=== PATIENT | female | born 1965 | race Caucasian/White ===

== ENCOUNTER 2021-01-14 10:28 | Emergency (ER) | payer MEDICAID, SELFPAY ==
[2021-01-14 10:37] VITALS: BP 163/86; PULSE 80; RESP 15; TEMP 36.4; O2SAT 98; BMI 20.1
--- NOTE | 2021-01-14 10:37 | ECG_ITS ---
[facility] Test Date: 2021-01-14 Pat Name: SAGE RODRIGUEZ Department: Room: Gender: Female Community Liaison Officer: : 1965 Requested By: Karla Ballard Order Number: [id number] Reading MD: BJORN SOUSA Measurements Intervals [place] Rate: 74 P: 58 MT: 155 QRS: 30 QRSD: 87 T: 68 QT: 366 QTc: 408 Interpretive Statements SINUS RHYTHM No previous ECG available for comparison Electronically Signed On 01-14-2021 21:16:43 CDT by BJORN SOUSA [id number]
--- NOTE | 2021-01-14 10:53 | ED_ITS ---
HPI - Abdominal Pain General: Chief Complaint: Abdominal Pain Stated Complaint: AB PAIN Time Seen by Provider: 01/14/21 10:51 Source: patient Mode of arrival: ambulatory Limitations: no limitations History of Present Illness: HPI narrative: 55-year-old female patient presents to the emergency department with 1 year onset of right upper quadrant pain waxes and wanes. She reports sustained a fall approximately 2 weeks ago, states noted bruising to her lower abdomen with a hard night. She reports the hard knot has improved. She denies difficulty with ambulation, denies chest pain shortness of breath, nausea vomiting diarrhea. She reports worsening right upper quadrant belly pain that started last night. She reports occurred after eating a bowl of cereal and has not let up. She denies history of abdominal surgeries. She reports last ate last night, states scared to eat anything due to the pain. She reports several weeks ago, tripped over the dog and fell on a tree root, tree root hit the right lower quadrant of her abdomen. She states hard not felt over the right lower quadrant is much smaller than it was several weeks ago. She denies hematuria or flank pain. MD elicited complaint: abdominal pain Onset (ago): month(s) Pain Consistency: constant Location: RUQ Severity: moderate Quality: stabbing and aching Radiation: none Migration to: no migration Exacerbating factors: eating Relieving factors: nothing Associated Symptoms: Reports bloating and chills; Denies belching, change in stool character, constipation, GI cramping, diarrhea, excessive flatus, fever(s), hematochezia, hematuria, hematemesis, fecal incontinence, melena, nausea, poor appetite and vomiting Review of Systems General: Reports: 10 or more systems reviewed and unremarkable except in HPI and below Const: Reports: chills; Denies: fever(s) Eyes: Denies: blurry vision or eye redness ENMT: Denies: throat pain, dental pain or disequilibrium Card: Denies: chest pain, palpitations, irregular heart rhythm, swelling of feet/ankles, dyspnea on exertion or orthopnea Resp: Denies: dyspnea, productive cough, non-productive cough, wheezing, hemoptysis or chest congestion GI: Reports: abdominal pain and bloating; Denies: nausea, vomiting, hematemesis, dysphagia, diarrhea, constipation, GI cramping, belching, excessive flatus, fecal incontinence, change in stool character, hematochezia or melena : Denies: flank pain, difficulty voiding, urinary frequency, urinary urgency or hematuria Musc: Denies: neck pain, back pain or joint pain Skin/Breast: Denies: rash or pruritus Neuro: Denies: headache(s), weakness in extremities or behavioral changes Psych: Reports: change in appetite; Denies: anxiety, depression or mood swings Isaiah/Lymph: Denies: easy bruising PFSH ED PFSH: Medical History Kidney stone Pneumonia Post hysterectomy menopause Sepsis Surgical History Tubal ligation status Physical Exam Const: COMMON NORMALS: no acute distress, patient oriented x3, healthy appearing, alert and well nourished GENERAL APPEARANCE: cooperative, well kempt, well developed, anxious and well hydrated NUTRITIONAL APPEARANCE: thin ORIENTATION/CONSCIOUSNESS: Yes awake, Yes oriented to person, Yes oriented to place and Yes oriented to time HENMT: COMMON NORMALS: normocephalic, atraumatic, Normal external nose present and moist oral mucous membranes HEAD & SCALP: normal to inspection, normocephalic and atraumatic FACE & SINUS: normal facial exam, sinuses nontender and face symmetric NOSE: Normal external nose present and No nasal polyps present MOUTH: Normal oral and palatal mucosa present, lip normal and tongue normal THROAT: posterior oropharynx normal, tonsils normal and uvula midline Eye: COMMON NORMALS: Equal, round and reactive pupils present and EOMs intact bilaterally GENERAL EYE: appearance normal, both eyes and all related structures PUPIL: Yes Equal, round and reactive pupils present Neck/C-Spine: COMMON NORMALS: full ROM and no lymphadenopathy GENERAL: Yes normal visual inspection and Yes trachea midline CERVICAL SPINE: Yes cervical ROM normal Lymph: LYMPHATIC: no lymphadenopathy noted Chest: COMMONS NORMALS: normal inspection of the chest and normal palpation of entire chest wall CHEST: No localized rib tenderness with anteroposterior compression and No Ecchymosis present Resp: COMMON NORMALS: normal respiratory effort, No retractions, No use of accessory muscles and clear to auscultation bilaterally EFFORT & INSPECTION: Yes able to speak in complete sentences, No labored and No audible wheezes AUSCULTATION: clear to auscultation bilaterally Cardio: COMMON NORMALS: regular rate, regular rhythm, S1 normal heart sound present, S2 normal heart sound present and Peripheral pulses 2+ throughout RATE: regular rate RHYTHM: regular rhythm HEART SOUNDS: S1 normal heart sound present and S2 normal heart sound present PERIPHERAL PULSES: Peripheral pulses 2+ throughout GI: COMMON NORMALS: Soft to palpation INSPECTION: Yes normal to inspection, Yes abdominal wall ecchymosis (RLQ), Yes Abdominal wall edema (RLQ), Yes abdominal distension, No central obesity and Yes other (Positive Cosby's) AUSCULTATION: Yes normoactive bowel sounds PALPATION: Yes Soft to palpation : COMMON NORMALS: Yes no CVA tenderness BLADDER/KIDNEY EXAM: Yes no CVA tenderness Back/Pelvis: COMMON NORMALS: no CVA tenderness, thoracic and lumbar spine normal to inspection, no thoracic nor lumbar tenderness, thoraco-lumbar ROM normal and straight leg raise negative bilaterally Extremity: COMMON NORMALS: normal to inspection, full ROM, capillary refill normal, no clubbing, cyanosis or edema and no pedal edema GENERAL: Yes normal exam except as noted Neuro: COMMON NORMALS: patient oriented x3 and no focal motor deficits SENSORIUM/ORIENTATION: Yes alert, Yes oriented to person, Yes oriented to place and Yes oriented to time SPEECH: speech normal GAIT: Yes Normal gait present MOTOR EXAM: 5/5 motor strength present throughout Psych: COMMON NORMALS: mental status grossly normal, Normal thought process present and cooperative APPEARANCE: Yes well kempt ACTIVITY/MOTOR BEHAVIOR: Yes appropriate eye contact THOUGHT PROCESS: Normal thought process present Skin: COMMON NORMALS: no rashes or lesions noted, no wounds, turgor normal, no petechiae and no mottling GENERAL SKIN EXAM: no rashes or lesions noted, elasticity normal and turgor normal Course Vital Signs: Vital signs: Vital Signs Temperature 97.6 F 01/14/21 10:37 Pulse Rate 78 01/14/21 13:38 Respiratory Rate 15 01/14/21 13:38 Blood Pressure 118/80 01/14/21 13:38 Pulse Oximetry 100 01/14/21 13:38 MDM - Abdominal Pain MDM Narrative: Medical decision making narrative: 55-year-old female patient presents to the emergency department with right upper quadrant pain. She reports pain worsened after eating last night. Positive Cosby's upon exam, suspicious for gallbladder etiology. Ultrasound gallbladder revealed normal gallbladder and bile ducts with mild fatty liver. CT scan completed secondary to right lower quadrant swelling with ecchymosis, she sustained a fall approximately 2 weeks ago as she continues to have abdominal pain. CT scan did reveal hematoma of the right lower quadrant, 5 cm. Lactic acid was 1.5, chest x-ray did reveal 13 mm bolus of the right lower lobe. Patient is a smoker, referred her to pulmonology, director social welfare referral placed to help with appointment. Patient was advised to follow-up with her primary care provider this week in regards to fatty liver findings. Morphine was provided here in the ED for pain which resolved her pain. She also received Toradol. She was placed on albuterol inhaler with smoking cessation instructions in regards to findings on her chest x-ray/abdominal CT. Advised she could have the beginning of COPD, this could be causing her pain. She reports feeling better and wants to go home. Agrees to follow-up with pulmonology and primary care. Differential Diagnosis: Differential diagnosis abdominal pain: Likely abdominal pain and acute appendicitis Lab Data: Labs: Lab Results 01/14/21 01/14/21 01/14/21 Range/Units 10:30 10:30 10:30 WBC 5.4 (4.0-10.0) 10^3/ uL RBC 4.48 (4.1-5.3) 10^6/u L Hgb 13.8 (11.5-15.3) g/dL Hct 41.2 (37.0-47.0) % MCV 92.0 (81-99) fL MCH 30.8 (28.0-34.0) pg MCHC 33.5 (30.0-36.0) g/dL RDW 12.8 (12.1-15.1) % Plt Count 374 (130-400) 10^3/c mm MPV 9.1 (7.4-10.4) fL Neut % (Auto) 41.6 % Lymph % (Auto) 48.4 % Harrison % (Auto) 8.5 % Eos % (Auto) 0.9 % Baso % (Auto) 0.4 % Neut # (Auto) 2.24 (1.8-7.7) 10^3/u L Lymph # (Auto) 2.6 (0.8-4.8) 10^3/u L Harrison # (Auto) 0.5 (0.2-0.9) 10^3/u L Eos # (Auto) 0.1 (0.0-0.8) 10^3/u L Baso # (Auto) 0.0 (0.0-0.1) 10^3/u L Nucleated RBC % (a uto) 0 % Nucleated RBCs # 0.0 /100WBC Sodium 137 (136-145) mmol/L Potassium 4.5 (3.5-5.1) mmol/L Chloride 103 (98-107) mmol/L Carbon Dioxide 26 (22-29) mmol/L Anion Gap 12.5 (5-19) BUN 13 (6-20) mg/dL Creatinine 0.5 (0.5-0.9) mg/dL GFR Calculation 129.1 (90-130) mL/min Glucose 80 (65-115) mg/dL Calculated Osmolal ity 283 L (285-295) mOsm/k g Lactate 1.5 (0.5-2.2) mmol/L Calcium 8.7 (8.5-10.5) mg/dL Total Bilirubin 0.3 (0.15-1.2) mg/dL AST 49 H (0-32) U/L ALT 55 H (0-33) U/L Alkaline Phosphata se 114 H (35-105) IU/L Total Protein 7.1 (6.6-8.7) g/dL Albumin 4.0 (3.5-5.2) g/dL Globulin 3.1 (1.3-4.6) g/dL Lipase 44 (13-60) U/L Urine Color (Yellow) Urine Appearance (CLEAR) Urine pH (5-7) Ur Specific Gravit y (1.005-1.030) Urine Protein (Negative) Urine Glucose (UA) (Normal) Urine Ketones (Negative) Urine Blood (Negative) Urine Nitrate (Negative) Urine Bilirubin (Negative) Urine Urobilinogen (Negative) mg/dL Ur Leukocyte Hanane ase (Negative) 01/14/21 Range/Units 10:30 WBC (4.0-10.0) 10^3/ uL RBC (4.1-5.3) 10^6/u L Hgb (11.5-15.3) g/dL Hct (37.0-47.0) % MCV (81-99) fL MCH (28.0-34.0) pg MCHC (30.0-36.0) g/dL RDW (12.1-15.1) % Plt Count (130-400) 10^3/c mm MPV (7.4-10.4) fL Neut % (Auto) % Lymph % (Auto) % Harrison % (Auto) % Eos % (Auto) % Baso % (Auto) % Neut # (Auto) (1.8-7.7) 10^3/u L Lymph # (Auto) (0.8-4.8) 10^3/u L Harrison # (Auto) (0.2-0.9) 10^3/u L Eos # (Auto) (0.0-0.8) 10^3/u L Baso # (Auto) (0.0-0.1) 10^3/u L Nucleated RBC % (a uto) % Nucleated RBCs # /100WBC Sodium (136-145) mmol/L Potassium (3.5-5.1) mmol/L Chloride (98-107) mmol/L Carbon Dioxide (22-29) mmol/L Anion Gap (5-19) BUN (6-20) mg/dL Creatinine (0.5-0.9) mg/dL GFR Calculation (90-130) mL/min Glucose (65-115) mg/dL Calculated Osmolal ity (285-295) mOsm/k g Lactate (0.5-2.2) mmol/L Calcium (8.5-10.5) mg/dL Total Bilirubin (0.15-1.2) mg/dL AST (0-32) U/L ALT (0-33) U/L Alkaline Phosphata se (35-105) IU/L Total Protein (6.6-8.7) g/dL Albumin (3.5-5.2) g/dL Globulin (1.3-4.6) g/dL Lipase (13-60) U/L Urine Color Yellow (Yellow) Urine Appearance Clear (CLEAR) Urine pH 7 (5-7) Ur Specific Gravit y 1.010 (1.005-1.030) Urine Protein Neg (Negative) Urine Glucose (UA) Norm (Normal) Urine Ketones Negative (Negative) Urine Blood Neg (Negative) Urine Nitrate Negative (Negative) Urine Bilirubin Neg (Negative) Urine Urobilinogen Norm (Negative) mg/dL Ur Leukocyte Hanane ase Negative (Negative) Imaging Data ^: US: Radiologist's impression: [facility] [address] [place] [address]. [place] [address] Ultrasound Report Signed Patient: Bryant RODRIGUEZ #: [id number] : 1965Acct#:[id number] Age/Sex: 55 / FADM Date: 01/14/21 Loc: ERRoom/Bed: Attending Dr: Ordering Provider/Ordering MD: Karla Metcalf Date of Service: 01/14/21 Procedure(s): US gall bladder 25403 Accession Number(s): [id number] Report Number: [id number] PROCEDURE INFORMATION: Exam: US Abdomen, Limited; Right Upper Quadrant Exam date and time: 01/14/2021 11:26 AM Age: 55 years old Clinical indication: Abdominal pain; Additional info: Ruq pain x weeks TECHNIQUE: Imaging protocol: US abdomen. Real time ultrasound with image documentation. Limited exam focused on the right upper quadrant. COMPARISON: CT abdomen pelvis w con* [id number] 01/14/2021 11:28 AM FINDINGS: Liver: There is mild increased echogenicity of the liver consistent with fatty liver. No liver masses are demonstrated. Gallbladder: Normal. No gallstones. There is no gallbladder wall thickening. Common bile duct: Normal. No stones. No dilation. Pancreas: The pancreatic duct is near the upper limit of normal diameter but otherwise the pancreas is unremarkable. Right kidney: Normal. No mass. No hydronephrosis. Aorta: The visualized portion of the aorta shows some atherosclerotic plaquing but no evidence of aneurysm. US/US gall bladder [id number] IMPRESSION: 1. Normal gallbladder and bile ducts. 2. Mild fatty liver. Dictated By:King Yi Signed By:Eliel Yi Date/Time:01/14/21 1212 DD/ 1211 CXR: Radiologist's impression: [facility] [address] [place] [address]. [place] [address] XRay Report Signed Patient: SAGE RODRIGUEZ Unit #: [id number] : 1965 Age/Sex: 55 / F ADM Date: Loc: ER Room/Bed: Attending Dr: Ordering Provider/Ordering MD: Karla Metcalf Date of Service: 01/14/21 Procedure(s): XR ribs RT mn 3V w CXR1V 71480 Accession Number(s): [id number] Report Number: [id number] PROCEDURE INFORMATION: Exam: XR Right Ribs with PA Chest Exam date and time: 01/14/2021 12:31 PM Age: 55 years old Clinical indication: Other: RT rib pain; Additional info: Rib pain bullous RT TECHNIQUE: Imaging protocol: XR Right ribs with PA chest. Views: 3 views COMPARISON: No relevant prior studies available. FINDINGS: Lungs: There is a benign calcified granuloma in the left lung base. No acute pulmonary infiltrates are seen. Pleural spaces: Unremarkable. No pleural effusion. No pneumothorax. Heart/Mediastinum: Unremarkable. No cardiomegaly. Bones/joints: The right ribs are unremarkable with no fracture. XR/XR ribs RT mn 3V w CXR1V 61672 IMPRESSION: No acute abnormality. Dictated By: King Yi Signed By: King Yi Signed Date/Time: 01/14/21 1311 DD/ 1309 CT Abd/Pel: Radiologist's impression: [address] [address] [address] Scan Report Signed Patient: SAGE RODRIGUEZ Unit #: [id number] : 1965 Age/Sex: 55 / F ADM Date: 01/14/21 Loc: ER Room/Bed: Attending Dr: Ordering Provider/Ordering MD: Karla Metcalf Date of Service: 01/14/21 Procedure(s): CT abdomen pelvis w con* [id number] Accession Number(s): [id number] Report Number: [id number] PROCEDURE INFORMATION: Exam: CT Abdomen And Pelvis With Contrast Exam date and time: 01/14/2021 11:06 AM Age: 55 years old Clinical indication: Abdominal pain; Localized; Right; Prior surgery; Surgery date: 6+ months; Surgery type: Hyster; Additional info: Fall, hematoma rlq TECHNIQUE: Imaging protocol: Computed tomography of the abdomen and pelvis with contrast. Radiation optimization: All CT scans at this facility use at least one of these dose optimization techniques: automated exposure control; mA and/or kV adjustment per patient size (includes targeted exams where dose is matched to clinical indication); or iterative reconstruction. Contrast material: OMNIPAQUE 300; Contrast volume: 95 ml; Contrast route: INTRAVENOUS (IV); COMPARISON: No relevant prior studies available. RADIATION DOSE METRICS: Total DLP (mGy-cm): 710.47 FINDINGS: Lungs: There is a 13 mm bullous in the right lower lobe. A benign calcified granuloma is present in the left lower lobe. Liver: There is a 6 mm benign cyst in the left lobe of the liver. Otherwise the liver is unremarkable. Gallbladder and bile ducts: Normal. No calcified stones. No ductal dilation. Pancreas: Normal. No ductal dilation. Spleen: There is a benign calcified granuloma in the spleen. Adrenal glands: Normal. No mass. Kidneys and ureters: Small subcentimeter benign appearing cysts are present in the kidneys. There are no enhancing renal masses. There is no renal calcification or hydronephrosis. Stomach and bowel: Unremarkable. No obstruction. No mucosal thickening. Appendix: No evidence of appendicitis. Intraperitoneal space: Unremarkable. No free air. No significant fluid collection. Vasculature: Unremarkable. No abdominal aortic aneurysm. Lymph nodes: Unremarkable. No enlarged lymph nodes. Urinary bladder: Unremarkable as visualized. Reproductive: Hysterectomy. Bones/joints: Chronic degenerative changes are present in the lumbar spine with disc space narrowing small osteophyte formation. There is sclerosis and hypertrophy of the lumbar facet joints. Soft tissues: There is a 5 cm subcutaneous fluid collection over the right lateral aspect of the right iliac crest which is consistent with the history given of a hematoma. CT/CT abdomen pelvis w con* [id number] IMPRESSION: 1. There is a 5 cm subcutaneous fluid collection over the right side of the pelvis consistent with hematoma. 2. Benign calcified granulomas disease. 3. No acute abnormalities are seen within the abdomen and pelvis. COMMENTS: Consistent with the [employer]'s Incidental Findings Committee white paper (J Am Rachel Radiol 2018): Any incidental renal lesion less than 1 cm or classified as too small to characterize, or any incidental cystic renal lesion characterized as simple-appearing, is likely benign. No follow-up imaging is recommended for these lesions per consensus recommendations based on imaging criteria. Radiation Dose CTDIVOL = (mGy): DLP = 710.47 (mGy-cm) Dictated By: King Yi Signed By: King Yi Signed Date/Time: 01/14/21 1209 DD/ 1207 EKG Data ^: EKG 1: EKG interpretation date: 01/14/21 EKG interpretation time: 10:48 Other EKG comments: Sinus rhythm, normal ECG, ventricular rate 74 Discharge Plan Discharge Patient Disposition: Home Clinical Impression: Abdominal hematoma, Fatty liver, Lung disease, bullous Condition: Stable Prescriptions: New Ventolin HFA 90 mcg/actuation HFA aerosol inhaler 2 puff INHALATION Q4H PRN (Reason: shortness of breath or wheezing) Qty: 18 RF: 0 Pepcid 20 mg tablet 20 mg PO BID Qty: 20 RF: 0 nicotine 21 mg/24 hr patch 24 hour 1 patch transdermal Q24H Qty: 14 RF: 0 Discharge Orders: Discharge ED (Routine); Ordered 01/14/21 Ordered By: Karla Metcalf Discharge Diet: Usual diet Discharge Activity: Limit activity as instructed Patient Instructions: Emphysema (ED), Blunt Abdominal Injury (ED), Non- Alcoholic Fatty Liver Disease (ED), Opioid Safety Activity Restrictions/Additional Instructions: Social service will contact you with an appointment with benefits specialist recruiter, lung specialist Albuterol has been prescribed, use 2 puffs every 4 hours as needed for cough. Recommend that you stop smoking, lung changes have been noted on testing completed today. Recommend low-fat heart healthy diet, daily exercise. You will need to follow- up with your primary care provider for further evaluation of your liver. Avoid fried greasy fatty foods Pepcid has been prescribed to help with pain you experience after eating. Nicotine patches have been prescribed to help with smoking cessation Return to the emergency department if you develop worsening symptoms such as shortness of breath, nausea vomiting or worsening abdominal pain, or if you note blood in your stool Coding Level of Care Code ED Career Development Associate for Chg Fwd Exam Comprehensive
[2021-01-14 11:00] VITALS: BP 141/88; PULSE 78; RESP 18; O2SAT 99
[2021-01-14] MEDS: morphine 4 mg/mL SDV 1 mL 2 MG IVP (11:10)
[2021-01-14] MEDS: ondansetron 2 mg/ML SDV 2 mL 4 MG IVP (11:10)
[2021-01-14 11:17] LABS: Add Urine Microscopic? NO; Charge for UA Resulting for Rev
[2021-01-14] MEDS: iohexol 300 mg/mL 100 mL Btl IV (11:19)
[2021-01-14 11:36] LABS: Basophils % 0.4 %; Eosinophils # 0.1 10^3/uL (0.0-0.8); Eosinophils % 0.9 %; Hematocrit 41.2 % (37.0-47.0); Hemoglobin 13.8 g/dL (11.5-15.3); Lymphocytes # 2.6 10^3/uL (0.8-4.8); Lymphocytes % 48.4 %; Mean Corpuscular HGB Conc 33.5 g/dL (30.0-36.0); Mean Corpuscular Hemoglobin 30.8 pg (28.0-34.0); Mean Platelet Volume 9.1 fL (7.4-10.4); Monocytes # 0.5 10^3/uL (0.2-0.9); Monocytes % 8.5 %; Neutrophils # 2.24 10^3/uL (1.8-7.7); Neutrophils % 41.6 %; Nucleated Red Blood Cells % 0 %; Platelet Count 374 10^3/cmm (130-400); Red Blood Count 4.48 10^6/uL (4.1-5.3); Red Cell Distribution Width 12.8 % (12.1-15.1); White Blood Count 5.4 10^3/uL (4.0-10.0)
[2021-01-14 11:46] LABS: Lactate (Lactic Acid level) 1.5 mmol/L (0.5-2.2)
[2021-01-14 11:47] LABS: Alanine Aminotransferase 55 U/L (0-33); Alkaline Phosphatase 114 IU/L (35-105); Anion Gap 12.5 (5-19); Aspartate Amino Transferase 49 U/L (0-32); Blood Urea Nitrogen 13 mg/dL (6-20); Calcium 8.7 mg/dL (8.5-10.5); Carbon Dioxide 26 mmol/L (22-29); Chloride 103 mmol/L (98-107); Globulin 3.1 g/dL (1.3-4.6); Glomerular Filtration Rate 129.1 mL/min (90-130); Glucose 80 mg/dL (65-115); Lipase 44 U/L (13-60); Osmolality Calculated 283 mOsm/kg (285-295); Potassium 4.5 mmol/L (3.5-5.1); Sodium 137 mmol/L (136-145); Total Bilirubin 0.3 mg/dL (0.15-1.2); Total Protein 7.1 g/dL (6.6-8.7)
[2021-01-14 12:07] LABS: Bilirubin Urine Neg (Negative); Blood Urine Neg (Negative); Glucose Urine UA Norm (Normal); Ketones Urine Negative (Negative); Leukocyte Esterase Urine Negative (Negative); Nitrate Urine Negative (Negative); Protein Urine Neg (Negative); Urine Appearance Clear (CLEAR); Urine Color Yellow (Yellow); Urobilinogen Urine Norm (Negative); pH Urine 7 (5-7)
--- NOTE | 2021-01-14 12:29 | XRR_ITS ---
PROCEDURE INFORMATION: Exam: XR Right Ribs with PA Chest Exam date and time: 01/14/2021 12:31 PM Age: 55 years old Clinical indication: Other: RT rib pain; Additional info: Rib pain bullous RT TECHNIQUE: Imaging protocol: XR Right ribs with PA chest. Views: 3 views COMPARISON: No relevant prior studies available. FINDINGS: Lungs: There is a benign calcified granuloma in the left lung base. No acute pulmonary infiltrates are seen. Pleural spaces: Unremarkable. No pleural effusion. No pneumothorax. Heart/Mediastinum: Unremarkable. No cardiomegaly. Bones/joints: The right ribs are unremarkable with no fracture. XR/XR ribs RT mn 3V w CXR1V [id number] IMPRESSION: No acute abnormality.
[2021-01-14] MEDS: ketorolac 30 mg/mL INJ 15 MG IVP (12:56)
[2021-01-14 13:00] VITALS: BP 118/80; PULSE 78; RESP 15; O2SAT 100
[2021-01-14 13:38] VITALS: BP 118/80; PULSE 78; RESP 15; O2SAT 100
--- NOTE | 2021-01-16 10:24 | DCPLANNER ---
natural sciences manager had message to schedule a follow up appointment for patient with [facility] for a lung bullous finding. natural sciences manager called pulmonology, spoke with Perla, gave clinic patients information. A follow up appointment was scheduled for Sunday, January 24, 2021 at 8:[address] Yo. natural sciences manager called patient and gave patient the appointment information. natural sciences manager also needed to speak with patient about getting a primary care physician. Patient stated that she already has a primary care physician, and has an appointment scheduled with her primary care. natural sciences manager also had an order for PFT, when spring encaser stated that spring encaser was going to fax the order to centralized scheduling, and that scheduling will call her with the appointment. Patient stated that she wanted to follow up with the human services assistant before scheduling the out patient testing. natural sciences manager will not send order to centralized scheduling per patients request.
--- NOTE | 2021-04-11 07:30 | DCPLANNER ---
Patient had a follow up appointment scheduled for 01.24.21 with [facility], Dr. Yo - patient did not attend appointment.
== END 2021-01-14 13:38 | disposition home or self-care (01) ==
PROVIDERS: Emergency Provider Nurse Practitioner Family
DX: K76.0 Fatty (change of) liver, not elsewhere classified (principal); J98.4 Other disorders of lung; S30.1XXA Contusion of abdominal wall, initial encounter; W18.09XA Striking against other object with subsequent fall, initial encounter
CPT/HCPCS: 71101; 74177; 76705; 80053; 81003; 83605; 83690; 85025; 93005; 96374; 96375; 99284; J1885; J2270; J2405; Q9967

== ENCOUNTER 2021-05-09 08:07 | Outpatient (CLI) | payer MEDICARE, MEDICAID, SELFPAY ==
--- NOTE | 2021-05-09 08:19 | XR_ITS ---
WS: [id number] HAND LEFT TECHNIQUE: 3 views of the left hand CLINICAL INFORMATION: RHEUMATOID ARTHRITIS INVOLVING MULTIPLE SITES, ARTHRALGIA COMPARISON: None. FINDINGS: Mild osteopenia. Mild narrowing of the radiocarpal joint. Degenerative arthritis first CMC and STT. N ormal metacarpals. Joint space narrowing involving the fifth DIP. IP joints are otherwise relatively well-preserved. No significant erosive changes. XR/XR hand LT min 3V* [id number] IMPRESSION: 1. No significant erosive changes. 2. Degenerative arthritis first CMC and STT 3. Joint space narrowing involving the fifth DIP. 4. Mild narrowing of the radiocarpal joint.
--- NOTE | 2021-05-09 08:19 | XR_ITS ---
WS: [id number] HAND RIGHT TECHNIQUE: 3 views of the right hand CLINICAL INFORMATION: RHEUMATOID ARTHRITIS INVOLVING MULTIPLE SITES, ARTHRALGIA COMPARISON: None. FINDINGS: Mild osteopenia. Mild degenerative narrowing involving the radiocarpal joint. Joint space narrowing w ith marginal osteophytes second and third DIP joints with mild flexion deformity. Mild joint space na rrowing fourth and fifth DIP joints. Proximal joint spaces are better preserved. Normal metacarpals. No significant erosive changes. XR/XR hand RT min 3V* [id number] IMPRESSION: 1. No significant erosive changes. 2. Joint space narrowing involving the second and third DIP joints with hypert rophic spurring. 3. Mild degenerative narrowing radiocarpal joint. 4. Mild joint space narrowing involving the fourth and fifth DIP joints.
--- NOTE | 2021-05-09 08:20 | XR_ITS ---
WS: [id number] ELBOW RIGHT TECHNIQUE: 3 views of the right elbow CLINICAL INFORMATION: RHEUMATOID ARTHRITIS INVOLVING MULTIPLE SITES, ARTHRALGIA COMPARISON: None. FINDINGS: No significant joint effusion. Distal humerus is normal in appearance. Normal radial head. Normal ole cranon. No evidence of acute fracture dislocation. XR/XR elbow RT min 3V* [id number] IMPRESSION: Normal right elbow.
--- NOTE | 2021-05-09 08:20 | XR_ITS ---
WS: [id number] FOOT RIGHT TECHNIQUE: 3 views of the right foot CLINICAL INFORMATION: RHEUMATOID ARTHRITIS INVOLVING MULTIPLE SITES, ARTHRALGIA COMPARISON: None. FINDINGS: Osteopenia. Hallux valgus with bunion deformity. Single small fixation or screw fragment in the head of the first metatarsal. Soft tissue edema about the ankle. Advanced arthritis ankle mortise with shelbi nt space narrowing. Subchondral sclerosis in the distal tibial plafond due to prior trauma and hardwa re. Normal talocalcaneal articulation. Mild degenerative arthritis involving the IP joints. A few tin y erosions involving the metatarsal heads and proximal phalanges. XR/XR foot RT min 3V* [id number] IMPRESSION: 1. Advanced osteopenia with hallux valgus and bunion deformity. 2. Prior screw fixation or retained screw in the head of the first metatarsal. 3. Advanced degenerative arthritis at the ankle mortise with joint space narro wing. Subchondral sclerosis and bony deformity distal tibial plafond due to rosalina or trauma and hardware. 4. A few tiny erosions involving the metatarsal heads and proximal phalanges.
--- NOTE | 2021-05-09 08:20 | XR_ITS ---
WS: [id number] TIBIA-FIBULA RIGHT TECHNIQUE: 2 views of the right tibia-fibula CLINICAL INFORMATION: HISTORY FRACTURE LOWER LEG COMPARISON: None. FINDINGS: Osteopenia. Advanced degenerative arthritis at the ankle mortise with subchondral sclerosis. Evidence of prior screw tracks in the tibial diaphysis and distal tibial plafond with sclerosis. No acute fra ctures. XR/XR tibia fibula RT 2V [id number] IMPRESSION: 1. Osteopenia. No acute fractures. 2. Evidence of prior screw tracks in the tibial diaphysis and distal tibial pl afond with sclerosis
--- NOTE | 2021-05-09 08:20 | XR_ITS ---
WS: [id number] ELBOW LEFT TECHNIQUE: 3 views of the left elbow CLINICAL INFORMATION: RHEUMATOID ARTHRITIS INVOLVING MULTIPLE SITES, ARTHRALGIA COMPARISON: None. FINDINGS: No significant joint effusion. Distal humerus is normal in appearance. Normal radial head. Normal ole cranon. No evidence of acute fracture dislocation. XR/XR elbow LT min 3V* [id number] IMPRESSION: Normal left elbow.
== END 2021-05-09 08:08 | disposition home or self-care (01) ==
PROVIDERS: PCP Registered Nurse; Visit Provider Registered Nurse
DX: M06.89 Other specified rheumatoid arthritis, multiple sites (principal); M25.50 Pain in unspecified joint; Z87.81 Personal history of (healed) traumatic fracture; M85.89 Other specified disorders of bone density and structure, multiple sites; M85.871 Other specified disorders of bone density and structure, right ankle and foot; M19.071 Primary osteoarthritis, right ankle and foot; M20.11 Hallux valgus (acquired), right foot; M21.611 Bunion of right foot; M19.042 Primary osteoarthritis, left hand
CPT/HCPCS: 73080; 73130; 73590; 73630

== ENCOUNTER → 2021-06-25 08:56 | Outpatient (BNVA) | payer MEDICARE, MEDICAID, SELFPAY | PROVIDERS: PCP Registered Nurse; Referring Provider Registered Nurse; Visit Provider Podiatrist Foot & Ankle Surgery | DX: M19.072 Primary osteoarthritis, left ankle and foot (principal); M19.071 Primary osteoarthritis, right ankle and foot; M79.672 Pain in left foot; M79.671 Pain in right foot | CPT/HCPCS: 73610; 73630 ==

== ENCOUNTER 2021-11-21 16:06 | Emergency (ER) | payer MEDICARE, MEDICAID, SELFPAY ==
--- NOTE | 2021-11-21 16:28 | XRR_ITS ---
PROCEDURE INFORMATION: Exam: XR Chest Exam date and time: 11/21/2021 4:28 PM Age: 56 years old Clinical indication: On breathing; Patient HX: History--chest pain starting last night after cleaning a house with black mold TECHNIQUE: Imaging protocol: XR of the chest. Views: 1 view. COMPARISON: CR XR ribs RT mn 3V w CXR1V [id number] 01/14/2021 12:47 PM FINDINGS: Lungs: There is no consolidation. There is a calcified granuloma at the left base, unchanged since 01/14/2021. Pleural spaces: There is no pleural effusion or pneumothorax. Heart/Mediastinum: Cardiomediastinal contours are unremarkable. Bones/joints: Bones are unremarkable. XR/XR chest 1V portable [id number] IMPRESSION: No acute findings.
[2021-11-21 17:38] VITALS: BP 150/88; PULSE 72; RESP 17; TEMP 36.7; O2SAT 94; BMI 21.5
--- NOTE | 2021-11-21 19:26 | PC.NURSE ---
Not in waiting room at 1926
== END 2021-11-21 20:10 | disposition left against medical advice (07) ==
PROVIDERS: Emergency Provider Family Medicine; PCP Registered Nurse
DX: Z53.21 Procedure and treatment not carried out due to patient leaving prior to being seen by health care provider (principal)
CPT/HCPCS: 71045

== ENCOUNTER 2021-11-23 17:17 | Emergency (ER) | payer MEDICARE, MEDICAID, SELFPAY ==
[2021-11-23 17:22] VITALS: BP 167/97; PULSE 82; RESP 18; TEMP 36.7; O2SAT 95; BMI 20.5
--- NOTE | 2021-11-23 17:50 | XRR_ITS ---
PROCEDURE INFORMATION: Exam: XR Chest Exam date and time: 11/23/2021 5:50 PM Age: 56 years old Clinical indication: Cough and dyspnea; Additional info: Dyspnea/cough TECHNIQUE: Imaging protocol: XR of the chest. Views: 1 view. COMPARISON: CR XR chest 1V portable [id number] 11/21/2021 4:32 PM FINDINGS: Lungs: Calcified granuloma at the left lung base. No consolidation. Pleural spaces: Unremarkable. No pleural effusion. No pneumothorax. Heart/Mediastinum: Unremarkable. No cardiomegaly. Bones/joints: Unremarkable. XR/XR chest 1V portable [id number] IMPRESSION: No acute findings.
--- NOTE | 2021-11-23 17:51 | ECG_ITS ---
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 Measurements Intervals [place] Rate: 65 P: 56 MT: 164 QRS: 47 QRSD: 76 T: 62 QT: 407 QTc: 424 Interpretive Statements SINUS RHYTHM Compared to ECG 01/14/2021 10:47:15 No significant changes Electronically Signed On 11-24-2021 8:30:45 BIOLOGICS SPECIALIST by Brianna Enriquez M.D. [id number]
--- NOTE | 2021-11-23 17:52 | ED_ITS ---
Documented by User: Ruy Fitzgerald DO 11/24/21 06:50 HPI - SOB/Dyspnea General: Chief Complaint: Shortness of Breath/Dyspnea Stated Complaint: Cant catch breath, Aching all over, cough Time Seen by Provider: 11/23/21 17:50 Source: patient Mode of arrival: ambulatory Limitations: no limitations History of Present Illness: HPI Narrative: 56-year-old female presents emergency room complaining of lung pain. 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 She is not had any hemoptysis she states she has generalized body aches and a nonproductive cough she denies any fever. No diarrhea. She is not previously been diagnosed with COVID nor does she been vaccinated. She does smoke regularly and has a history of COPD is only on Ventolin at this point. MD elicited complaint: shortness of breath and cough Pertinent past history: COPD Onset (ago): day(s) (2) Timing: constant Severity: mild Exacerbating factors: nothing Relieving factors: nothing Known history of: COPD Associated symptoms: Deny abdominal pain, chest congestion, chest pain, cough, diaphoresis, dizziness, extremity pain, fever(s), hemoptysis, lightheadedness, myalgias, nausea, orthopnea, palpitations, paresthesias, polydipsia, polyuria, rash, sense of impending doom, syncope or vomiting Treatment prior to arrival: none Review of Systems Const: Denies: fever(s) or diaphoresis ENMT: Denies: throat pain, ear or mastoid pain, nasal discharge or nasal congestion Card: Denies: chest pain, palpitations, lightheadedness, syncope or orthopnea Resp: Reports: dyspnea, non-productive cough, wheezing and pain on inspiration; Denies: hemoptysis or chest congestion GI: Denies: abdominal pain, nausea or vomiting : Denies: flank pain, difficulty voiding, dysuria, urinary frequency or urinary urgency Musc: Denies: extremity pain Skin/Breast: Denies: rash or pruritus Neuro: Denies: dizziness Endo: Denies: polyuria or polydipsia PFS ED PFSH: Medical History Kidney stone Pneumonia Post hysterectomy menopause Sepsis Surgical History Tubal ligation status Social History Smoking and tobacco status: current every day smoker Physical Exam Const: COMMON NORMALS: no acute distress GENERAL APPEARANCE: cooperative and comfortable ORIENTATION/CONSCIOUSNESS: Yes awake, Yes oriented to person, Yes oriented to place and Yes oriented to time HENMT: COMMON NORMALS: normocephalic, atraumatic and hearing grossly normal bilaterally HEAD & SCALP: normocephalic and atraumatic Neck/C-Spine: COMMON NORMALS: no JVD Resp: EFFORT & INSPECTION: Yes able to speak in complete sentences AUSCULTATION: wheezes and diminished lung sounds Cardio: COMMON NORMALS: no JVD, regular rate, regular rhythm and No murmurs present (Cardio) RATE: regular rate RHYTHM: regular rhythm GI: COMMON NORMALS: Soft to palpation and No hepatosplenomegaly present AUSCULTATION: Yes normoactive bowel sounds PALPATION: Yes Soft to palpation, No Tenderness to palpation present (GI), No Guarding due to palpation present (GI) and Yes No hepatosplenomegaly present Extremity: COMMON NORMALS: normal to inspection, capillary refill normal, no clubbing, cyanosis or edema, no calf tenderness and no pedal edema Neuro: SENSORIUM/ORIENTATION: Yes oriented to person, Yes oriented to place and Yes oriented to time Skin: COMMON NORMALS: no rashes or lesions noted GENERAL SKIN EXAM: no ra shes or lesions noted Course Vital Signs: Vital signs: Vital Signs Temperature 98.1 F 11/23/21 17:22 Pulse Rate 82 11/23/21 17:22 Respiratory Rate 18 11/23/21 17:22 Blood Pressure 167/97 11/23/21 17:22 Pulse Oximetry 95 11/23/21 17:22 MDM - SOB/Dyspnea Medical Decision Making Care signed out to Dr. Harper at change of shift. See final notes for diagnosis and disposition. 56-year-old female checked out to me at shift change by Dr. Fitzgerald. This lady has had shortness of breath. Her chest x-ray is negative. Laboratory is benign. COVID-19 PCR is negative. I elected to treat her as an outpatient with corticosteroids and antibiotic coverage, but before the patient could be discharged, she pulled out her IV, pulled her self off the monitor, and eloped from the ER. Medical Records I reviewed the patient's medical records. Lab Data I reviewed the patient's lab results. : 11/23/21 18:00 11/23/21 19:15 Labs/Radiology: Radiology Impressions Chest X-Ray 11/23/21 17:50 IMPRESSION: No acute findings. Laboratory Results WBC 7.0 10^3/uL (4.0-10.0) 11/23/21 18:00 RBC 4.28 10^6/uL (4.1-5.3) 11/23/21 18:00 Hgb 13.6 g/dL (11.5-15.3) 11/23/21 18:00 Hct 40.6 % (37.0-47.0) 11/23/21 18:00 MCV 94.9 fl (81-99) 11/23/21 18:00 MCH 31.8 pg (28.0-34.0) 11/23/21 18:00 MCHC 33.5 g/dL (30.0-36.0) 11/23/21 18:00 RDW 13.8 % (12.1-15.1) 11/23/21 18:00 Plt Count 301 10^3/cmm (130-400) 11/23/21 18:00 MPV 9.6 fL (7.4-10.4) 11/23/21 18:00 Neut % (Auto) 59.2 % 11/23/21 18:00 Lymph % (Auto) 29.8 % 11/23/21 18:00 [place] % (Auto) 9.4 % 11/23/21 18:00 Eos % (Auto) 1.0 % 11/23/21 18:00 Baso % (Auto) 0.3 % 11/23/21 18:00 Neut # (Auto) 4.12 10^3/uL (1.8-7.7) 11/23/21 18:00 Lymph # (Auto) 2.1 10^3/uL (0.8-4.8) 11/23/21 18:00 [place] # (Auto) 0.7 10^3/uL (0.2-0.9) 11/23/21 18:00 Eos # (Auto) 0.1 10^3/uL (0.0-0.8) 11/23/21 18:00 Baso # (Auto) 0.0 10^3/uL (0.0-0.1) 11/23/21 18:00 Nucleated RBC % (auto) 0 % 11/23/21 18:00 Nucleated RBCs # 0.0 /100WBC 11/23/21 18:00 Sodium 135 mmol/L (136-145) L 11/23/21 19:15 Potassium 4.0 mmol/L (3.5-5.1) 11/23/21 19:15 Chloride 101 mmol/L (98-107) 11/23/21 19:15 Carbon Dioxide 21 mmol/L (22-29) L 11/23/21 19:15 Anion Gap 17.0 (5-19) 11/23/21 19:15 BUN 19 mg/dL (6-20) 11/23/21 19:15 Creatinine 0.5 mg/dL (0.5-0.9) 11/23/21 19:15 GFR Calculation 128.6 mL/min (90-130) 11/23/21 19:15 Glucose 95 mg/dL (65-115) 11/23/21 19:15 Calculated Osmolality 282 mOsm/kg (285-295) L 11/23/21 19:15 Calcium 9.2 mg/dL (8.5-10.5) 11/23/21 19:15 Total Bilirubin 0.4 mg/dL (0.15-1.2) 11/23/21 19:15 AST 33 U/L (0-32) H 11/23/21 19:15 ALT 28 U/L (0-33) 11/23/21 19:15 Alkaline Phosphatase 92 IU/L (35-105) 11/23/21 19:15 Creatine Kinase 342 U/L (26-192) H* 11/23/21 19:15 Troponin T Baseline 8 ng/L (0-10) 11/23/21 19:15 Total Protein 7.6 g/dL (6.6-8.7) 11/23/21 19:15 Albumin 3.9 g/dL (3.5-5.2) 11/23/21 19:15 Globulin 3.7 g/dL (1.3-4.6) 11/23/21 19:15 Coronavirus 229E (PCR) Not detected (NOT DETECT) 11/23/21 18:40 SARS-CoV-2 (PCR) Not detected (NOT DETECT) 11/23/21 18:40 Discharge Plan Discharge Patient Disposition: Home Clinical Impression: Bronchitis Condition: Stable Prescriptions: New dexamethasone 6 mg tablet 6 mg PO DAILY Qty: 5 0RF doxycycline hyclate 100 mg capsule 100 mg PO BID 7 Days Qty: 14 0RF No Action (DME) AFO to right See Rx Instructions .Route .MEDSUPPLY Qty: 1 0RF Rx Instructions: As directed by [facility]O Ventolin HFA 90 mcg/actuation HFA aerosol inhaler 2 puff INHALATION Q4H PRN (Reason: shortness of breath or wheezing) Qty: 18 0RF Rx Instructions: 2 puffs every 4 hours as needed for cough/shortness of breath/wheezing Pepcid 20 mg tablet 20 mg PO BID Qty: 20 0RF nicotine 21 mg/24 hr patch 24 hour 1 patch transdermal Q24H Qty: 14 0RF Discharge Orders: Discharge ED (Routine); Ordered 11/23/21 Ordered By: Lamonte Harper Referrals: Taryn Barr [Primary Care Provider] - 1-3 days Patient Instructions: Acute Bronchitis (ED) Activity Restrictions/Additional Instructions: Use your inhaler every 4 hours while awake for the next 48 hours, then as needed. Medications as directed. Return for worsening chest discomfort, wor sening shortness of breath despite treatment, fever greater than 100 despite 3 doses of antibiotics or more, any other concerning symptoms. We will call you to let you know if your COVID-19 test comes back positive, and you should quarantine at home until you know your results and they are deemed negative. Coding Level of Care Code ED Alternative Education Teacher for Chg Fwd Exam Comprehensive Documented by User: Lamonte Harper DO 11/24/21 03:46 HPI - SOB/Dyspnea General: Chief Complaint: Shortness of Breath/Dyspnea Stated Complaint: Cant catch breath, Aching all over, cough Time Seen by Provider: 11/23/21 17:50 [facility] ED PFSH: Medical History Kidney stone Pneumonia Post hysterectomy menopause Sepsis Surgical History Tubal ligation status Social History Smoking and tobacco status: current every day smoker Course Vital Signs: Vital signs: Vital Signs Temperature 98.1 F 11/23/21 17:22 Pulse Rate 82 11/23/21 17:22 Respiratory Rate 18 11/23/21 17:22 Blood Pressure 167/97 11/23/21 17:22 Pulse Oximetry 95 11/23/21 17:22 MDM - SOB/Dyspnea Medical Decision Making 56-year-old female checked out to me at shift change by Dr. Fitzgerald. This lady has had shortness of breath. Her chest x-ray is negative. Laboratory is [place] COVID-19 PCR is negative. I elected to treat her as an outpatient with corticosteroids and antibiotic coverage, but before the patient could be discharged, she pulled out her IV, pulled her self off the monitor, and eloped from the ER. Lab Data : 11/23/21 18:00 11/23/21 19:15 Labs/Radiology: Radiology Impressions Chest X-Ray 11/23/21 17:50 IMPRESSION: No acute findings. Laboratory Results WBC 7.0 10^3/uL (4.0-10.0) 11/23/21 18:00 RBC 4.28 10^6/uL (4.1-5.3) 11/23/21 18:00 Hgb 13.6 g/dL (11.5-15.3) 11/23/21 18:00 Hct 40.6 % (37.0-47.0) 11/23/21 18:00 MCV 94.9 fl (81-99) 11/23/21 18:00 MCH 31.8 pg (28.0-34.0) 11/23/21 18:00 MCHC 33.5 g/dL (30.0-36.0) 11/23/21 18:00 RDW 13.8 % (12.1-15.1) 11/23/21 18:00 Plt Count 301 10^3/cmm (130-400) 11/23/21 18:00 MPV 9.6 fL (7.4-10.4) 11/23/21 18:00 Neut % (Auto) 59.2 % 11/23/21 18:00 Lymph % (Auto) 29.8 % 11/23/21 18:00 [place] % (Auto) 9.4 % 11/23/21 18:00 Eos % (Auto) 1.0 % 11/23/21 18:00 Baso % (Auto) 0.3 % 11/23/21 18:00 Neut # (Auto) 4.12 10^3/uL (1.8-7.7) 11/23/21 18:00 Lymph # (Auto) 2.1 10^3/uL (0.8-4.8) 11/23/21 18:00 [place] # (Auto) 0.7 10^3/uL (0.2-0.9) 11/23/21 18:00 Eos # (Auto) 0.1 10^3/uL (0.0-0.8) 11/23/21 18:00 Baso # (Auto) 0.0 10^3/uL (0.0-0.1) 11/23/21 18:00 Nucleated RBC % (auto) 0 % 11/23/21 18:00 Nucleated RBCs # 0.0 /100WBC 11/23/21 18:00 Sodium 135 mmol/L (136-145) L 11/23/21 19:15 Potassium 4.0 mmol/L (3.5-5.1) 11/23/21 19:15 Chloride 101 mmol/L (98-107) 11/23/21 19:15 Carbon Dioxide 21 mmol/L (22-29) L 11/23/21 19:15 Anion Gap 17.0 (5-19) 11/23/21 19:15 BUN 19 mg/dL (6-20) 11/23/21 19:15 Creatinine 0.5 mg/dL (0.5-0.9) 11/23/21 19:15 GFR Calculation 128.6 mL/min (90-130) 11/23/21 19:15 Glucose 95 mg/dL (65-115) 11/23/21 19:15 Calculated Osmolality 282 mOsm/kg (285-295) L 11/23/21 19:15 Calcium 9.2 mg/dL (8.5-10.5) 11/23/21 19:15 Total Bilirubin 0.4 mg/dL (0.15-1.2) 11/23/21 19:15 AST 33 U/L (0-32) H 11/23/21 19:15 ALT 28 U/L (0-33) 11/23/21 19:15 Alkaline Phosphatase 92 IU/L (35-105) 11/23/21 19:15 Creatine Kinase 342 U/L (26-192) H* 11/23/21 19:15 Troponin T Baseline 8 ng/L (0-10) 11/23/21 19:15 Total Protein 7.6 g/dL (6.6-8.7) 11/23/21 19:15 Albumin 3.9 g/dL (3.5-5.2) 11/23/21 19:15 Globulin 3.7 g/dL (1.3-4.6) 11/23/21 19:15 Coronavirus 229E (PCR) Not detected (NOT DETECT) 11/23/21 18:40 SARS-CoV-2 (PCR) Not detected (NOT DETECT) 11/23/21 18:40 Discharge Plan Discharge Patient Disposition: Home Clinical Impression: Bronchitis Condition: Stable Prescriptions: New dexamethasone 6 mg tablet 6 mg PO DAILY Qty: 5 0RF doxycycline hyclate 100 mg capsule 100 mg PO BID 7 Days Qty: 14 0RF No Action (DME) AFO to right See Rx Instructions .Route .MEDSUPPLY Qty: 1 0RF Rx Instructions: As directed by [facility] Ventolin HFA 90 mcg/actuation HFA aerosol inhaler 2 puff INHALATION Q4H PRN (Reason: shortness of breath or wheezing) Qty: 18 0RF Rx Instructions: 2 puffs every 4 hours as needed for cough/shortness of breath/wheezing Pepcid 20 mg tablet 20 mg PO BID Qty: 20 0RF nicotine 21 mg/24 hr patch 24 hour 1 patch transdermal Q24H Qty: 14 0RF Discharge Orders: Discharge ED (Routine); Ordered 11/23/21 Ordered By: Lamonte Harper Referrals: Taryn Barr [Primary Care Provider] - 1-3 days Patient Instructions: Acute Bronchitis (ED) Activity Restrictions/Additional Instructions: Use your inhaler every 4 hours while awake for the next 48 hours, then as needed. Medications as directed. Return for worsening chest discomfort, worsening shortness of breath despite treatment, fever greater than 100 despite 3 doses of antibiotics or more, any other concerning symptoms. We will call you to let you know if your COVID-19 test comes back positive, and you should quarantine at home until you know your results and they are deemed negative. Coding Level of Care Code ED Alternative Education Teacher for Chg Fwd Exam Comprehensive
[2021-11-23 18:24] LABS: Basophils % 0.3 %; Eosinophils # 0.1 10^3/uL (0.0-0.8); Hematocrit 40.6 % (37.0-47.0); Hemoglobin 13.6 g/dL (11.5-15.3); Lymphocytes # 2.1 10^3/uL (0.8-4.8); Lymphocytes % 29.8 %; Mean Corpuscular HGB Conc 33.5 g/dL (30.0-36.0); Mean Corpuscular Hemoglobin 31.8 pg (28.0-34.0); Mean Corpuscular Volume 94.9 fl (81-99); Mean Platelet Volume 9.6 fL (7.4-10.4); Monocytes # 0.7 10^3/uL (0.2-0.9); Monocytes % 9.4 %; Neutrophils # 4.12 10^3/uL (1.8-7.7); Neutrophils % 59.2 %; Nucleated Red Blood Cells % 0 %; Platelet Count 301 10^3/cmm (130-400); Red Blood Count 4.28 10^6/uL (4.1-5.3); Red Cell Distribution Width 13.8 % (12.1-15.1)
--- NOTE | 2021-11-23 18:48 | PC.NURSE ---
PT PLACED ON CONTINUOUS SPO2, NIBP, AND CM.
--- NOTE | 2021-11-23 19:08 | PC.NURSE ---
report given to tasneem dee assumed care.
[2021-11-23 19:49] LABS: Troponin(5th) Baseline 8 ng/L (0-10)
[2021-11-23 19:52] LABS: Alanine Aminotransferase 28 U/L (0-33); Albumin Level 3.9 g/dL (3.5-5.2); Alkaline Phosphatase 92 IU/L (35-105); Aspartate Amino Transferase 33 U/L (0-32); Blood Urea Nitrogen 19 mg/dL (6-20); Calcium 9.2 mg/dL (8.5-10.5); Carbon Dioxide 21 mmol/L (22-29); Chloride 101 mmol/L (98-107); Globulin 3.7 g/dL (1.3-4.6); Glomerular Filtration Rate 128.6 mL/min (90-130); Glucose 95 mg/dL (65-115); Osmolality Calculated 282 mOsm/kg (285-295); Sodium 135 mmol/L (136-145); Total Bilirubin 0.4 mg/dL (0.15-1.2); Total Protein 7.6 g/dL (6.6-8.7)
[2021-11-23 19:59] LABS: Creatine Phosphokinase 342 U/L (26-192)
--- NOTE | 2021-11-23 20:29 | PC.NURSE ---
When going into the room to administer medications and patient has removed her IV, O2 monitor, blood pressure cuff and has left the room. Unknown reason why patient left the ER.
[2021-11-23 21:10] LABS: Adenovirus Not Detected (NOT DETECT); Chlamydia Pneumoniae Not Detected (NOT DETECT); Coronavirus 229E,HKU1,NL63,OC4 Not Detected (NOT DETECT); Human Metapneumovirus Not Detected (NOT DETECT); Human Rhinovirus/Enterovirus Not Detected (NOT DETECT); Influenza A Not Detected (NOT DETECT); Influenza A H1 Not Detected (NOT DETECT); Influenza A H1-2009 Not Detected (NOT DETECT); Influenza A H3 Not Detected (NOT DETECT); Influenza B Not Detected (NOT DETECT); Mycoplasma Pneumoniae Not Detected (NOT DETECT); Parainfluenza Virus Type 1 Not Detected (NOT DETECT); Parainfluenza Virus Type 2 Not Detected (NOT DETECT); Parainfluenza Virus Type 3 Not Detected (NOT DETECT); Parainfluenza Virus Type 4 Not Detected (NOT DETECT); Respiratory Syncytial Virus A Not Detected (NOT DETECT); Respiratory Syncytial Virus B Not Detected (NOT DETECT); SARS-COV-2 Not Detected (NOT DETECT)
== END 2021-11-23 20:36 | disposition home or self-care (01) ==
PROVIDERS: Family Medicine; Emergency Provider Emergency Medicine; PCP Registered Nurse
DX: J40 Bronchitis, not specified as acute or chronic (principal); F17.210 Nicotine dependence, cigarettes, uncomplicated; Z20.822 Contact with and (suspected) exposure to COVID-19
CPT/HCPCS: 71045; 80053; 82550; 84484; 85025; 87635; 93005; 99283

== ENCOUNTER 2022-05-09 09:15 | Outpatient (CLI) | payer MEDICARE, MEDICAID, SELFPAY ==
--- NOTE | 2022-05-09 09:23 | MM_ITS ---
WS: [id number] Bilateral screening 3D tomosynthesis digital mammogram, 05/09/2022 Clinical Data: SCREENING Comparison: None. Findings: The breast parenchymal pattern shows fibroglandular tissue. No spiculated masses or clustered calcifi cations are seen. There are no secondary signs of carcinoma. Vascular calcifications are present. MM/[place] [id number] Impression: 1. Negative bilateral mammogram unchanged. 2. Recommend annual screening mammograms. BIRADS: 1-Negative FOLLOW UP: 1 Year Follow-up The CAD relay checker was used.
== END 2022-05-09 09:16 | disposition home or self-care (01) ==
LOC: RAD 09:16
PROVIDERS: PCP Registered Nurse; Visit Provider Registered Nurse
DX: Z12.31 Encounter for screening mammogram for malignant neoplasm of breast (principal)
CPT/HCPCS: 77063; 77067

== ENCOUNTER 2022-06-06 20:05 | Emergency (ER) | payer MEDICARE, MEDICAID, SELFPAY ==
[2022-06-06 20:08] VITALS: BP 172/93; PULSE 62; RESP 16; TEMP 36.2; O2SAT 95
--- NOTE | 2022-06-18 18:34 | W.ED.BACK ---
HPI - Back Pain/Injury General: Chief Complaint: Back Pain/Injury Stated Complaint: low back pain Time Seen by Provider: 06/07/22 01:08 History of Present Illness: Patient left prior to evaluation [facility] ED PFSH: Medical History Kidney stone Pneumonia Post hysterectomy menopause Sepsis Surgical History Tubal ligation status Social History Smoking and tobacco status: current every day smoker Course Vital Signs: Vital signs: Vital Signs Temperature 97.2 F L 06/06/22 20:08 Pulse Rate 62 06/06/22 20:08 Respiratory Rate 16 06/06/22 20:08 Blood Pressure 172/93 06/06/22 20:08 Pulse Oximetry 95 06/06/22 20:08 MDM - Back Pain/Injury Medical Decision Making Patient left prior to evaluation Discharge Plan Discharge Patient Disposition: Left Without Being Seen Coding Level of Care Code ED Infantry Indirect Fire Crewmember for William Siddiqui
== END 2022-06-07 01:23 | disposition left against medical advice (07) ==
PROVIDERS: Emergency Provider Emergency Medicine; PCP Registered Nurse
DX: Z53.21 Procedure and treatment not carried out due to patient leaving prior to being seen by health care provider (principal); M54.9 Dorsalgia, unspecified

== ENCOUNTER 2022-08-20 18:00 | Emergency (ER) | payer MEDICARE, MEDICAID, SELFPAY ==
[2022-08-20 18:01] VITALS: BP 117/73; PULSE 79; RESP 16; TEMP 36.8; O2SAT 94; BMI 18.5
--- NOTE | 2022-08-20 18:01 | XRR_ITS ---
PROCEDURE INFORMATION: Exam: XR Chest Exam date and time: 08/20/2022 6:13 PM Age: 56 years old Clinical indication: Shortness of breath; Additional info: SOB TECHNIQUE: Imaging protocol: Radiologic exam of the chest. Views: 1 view. COMPARISON: CR XR chest 1V portable [id number] 11/23/2021 5:56 PM FINDINGS: Lungs: Emphysematous changes. Left lower lobe calcified benign granuloma. Pleural spaces: Unremarkable. No pleural effusion. No pneumothorax. Heart/Mediastinum: Unremarkable. No cardiomegaly. Bones/joints: Unremarkable. XR/XR chest 1V portable [id number] IMPRESSION: 1. Emphysematous changes. 2. Left lower lobe calcified benign granuloma. 3. Negative for infiltrate.
--- NOTE | 2022-08-20 18:32 | ED_ITS ---
Documented by User: Jj Borjas MD 08/20/22 19:55 HPI - Weakness General: Chief complaint: Weakness Stated complaint: SOB, bodyaches Time Seen by Provider: 08/20/22 18:02 History of Present Illness: Patient comes in with 2 days of cough, body aches, congestion. Denies fever, vomiting. Associated symptoms: Denies chest pain, dysuria, fever(s), headache(s), nausea or vomiting Review of Systems Const: Reports: body aches; Denies: fever(s) Eyes: Denies: change in vision or blurry vision ENMT: Denies: throat pain or odynophagia Card: Denies: chest pain or palpitations Resp: Reports: non-productive cough; Denies: dyspnea GI: Denies: abdominal pain, nausea or vomiting : Denies: flank pain or dysuria Musc: Denies: neck pain or back pain Skin/Breast: Denies: rash or pruritus Neuro: Denies: headache(s) or numbness in extremities Psych: Denies: anxiety or change in appetite Endo: Denies: polyuria or excessive sweating PFSH ED PFSH: Medical History Kidney stone Pneumonia Post hysterectomy menopause Sepsis Surgical History Tubal ligation status Social History Smoking and tobacco status: current every day smoker Physical Exam Const: COMMON NORMALS: no acute distress, patient oriented x3, healthy appearing and alert HENMT: COMMON NORMALS: normocephalic and atraumatic HEAD & SCALP: normocephalic and atraumatic Eye: COMMON NORMALS: Equal, round and reactive pupils present and EOMs intact bilaterally PUPIL: Yes Equal, round and reactive pupils present OTHER: Bilateral glassy eyed appearance Neck/C-Spine: COMMON NORMALS: full ROM and supple Resp: COMMON NORMALS: normal respiratory effort, No retractions and No use of accessory muscles Cardio: COMMON NORMALS: regular rate and regular rhythm RATE: regular rate RHYTHM: regular rhythm GI: COMMON NORMALS: Normal to inspection, nondistended, normoactive bowel sounds present, Soft to palpation and non-tender PALPATION: Yes Soft to palpation Back/Pelvis: COMMON NORMALS: thoracic and lumbar spine normal to inspection and no thoracic nor lumbar tenderness Extremity: COMMON NORMALS: normal to inspection and full ROM Neuro: COMMON NORMALS: patient oriented x3 SENSORIUM/ORIENTATION: Yes alert Psych: COMMON NORMALS: mental status grossly normal and cooperative Skin: COMMON NORMALS: no rashes or lesions noted and no wounds GENERAL SKIN EXAM: no rashes or lesions noted Course Vital Signs: Vital signs: Vital Signs Temperature 98.2 F 08/20/22 18:01 Pulse Rate 79 08/20/22 18:01 Respiratory Rate 16 08/20/22 18:01 Blood Pressure 117/73 08/20/22 18:01 Pulse Oximetry 94 08/20/22 18:01 Oxygen Delivery Me thod 08/20/22 18:01 MDM - Weakness Medical Decision Making Patient comes in with 2 days of cough, body aches, congestion. Denies fever, vomiting. Physical exam is unremarkable except for bilateral glassy eyed appearance. Patient would like to be swabbed for COVID and influenza. Will check swabs and reassess. On reassessment the patient states she would like to go home and not wait for the test results. We we will call her if they are positive. Will discharge at this time with precautions return for worsening or changing symptoms Lab Data Radiology Impressions Chest X-Ray 08/20/22 18:01 IMPRESSION: 1. Emphysematous changes. 2. Left lower lobe calcified benign granuloma. 3. Negative for infiltrate. Laboratory Results Coronavirus 229E (PCR) Cancelled 08/20/22 19:11 Influenza Type A Ag negative (Negative) 08/20/22 19:11 Influenza Type B Ag negative (Negative) 08/20/22 19:11 SARS-CoV-2 (PCR) Cancelled 08/20/22 19:11 SARS-CoV-2 Ag (Rapid) Negative (Negative) 08/20/22 19:52 Discharge Plan Discharge Patient Disposition: Home Clinical Impression: Cough Condition: Stable Prescriptions: No Action (DME) AFO to right See Rx Instructions .Route .MEDSUPPLY Qty: 1 0RF Rx Instructions: As directed by [facility] Ventolin HFA 90 mcg/actuation HFA aerosol inhaler 2 puff INHALATION Q4H PRN (Reason: shortness of breath or wheezing) Qty: 18 0RF Rx Instructions: 2 puffs every 4 hours as needed for cough/shortness of breath/wheezing Pepcid 20 mg tablet 20 mg PO BID Qty: 20 0RF nicotine 21 mg/24 hr patch 24 hour 1 patch transdermal Q24H Qty: 14 0RF dexamethasone 6 mg tablet 6 mg PO DAILY Qty: 5 0RF Discharge Orders: Discharge ED (Routine); Ordered 08/20/22 Ordered By: Jj Borjas Referrals: Taryn Barr [Primary Care Provider] - Coding Level of Care Code ED Shower Enclosure Installer for Chg Fwd Exam Comprehensive Documented by User: JANINE Jackson 09/03/22 20:42 HPI - Weakness General: Chief complaint: Weakness Stated complaint: SOB, bodyaches Time Seen by Provider: 08/20/22 18:02 PFSH ED PFSH: Medical History Kidney stone Pneumonia Post hysterectomy menopause Sepsis Surgical History Tubal ligation status Social History Smoking and tobacco status: current every day smoker Course Vital Signs: Vital signs: Vital Signs Temperature 98.2 F 08/20/22 18:01 Pulse Rate 79 08/20/22 18:01 Respiratory Rate 16 08/20/22 18:01 Blood Pressure 117/73 08/20/22 18:01 Pulse Oximetry 94 08/20/22 18:01 Oxygen Delivery Me thod 08/20/22 18:01 MDM - Weakness Medical Decision Making Patient comes in with 2 days of cough, body aches, congestion. Denies fever, vomiting. Physical exam is unremarkable except for bilateral glassy eyed appearance. Patient would like to be swabbed for COVID and influenza. Will check swabs and reassess. On reassessment the patient states she would like to go home and not wait for the test results. We we will call her if they are positive. Will discharge at this time with precautions return for worsening or changing symptoms 09/03/2022?patient chart assigned to this medical provider inadvertently. JANINE Jackson did not evaluate this patient Lab Data Radiology Impressions Chest X-Ray 08/20/22 18:01
[2022-08-20 19:53] LABS: Influenza A by IFA negative (Negative); Influenza B by IFA negative (Negative)
[2022-08-20 19:54] LABS: SARS Covid-2 Antigen Negative (Negative)
== END 2022-08-20 19:57 | disposition home or self-care (01) ==
PROVIDERS: Emergency Provider Emergency Medicine; PCP Registered Nurse
DX: R05.9 Cough, unspecified (principal); Z20.822 Contact with and (suspected) exposure to COVID-19; F17.210 Nicotine dependence, cigarettes, uncomplicated
CPT/HCPCS: 71045; 87426; 87804; 99283

== ENCOUNTER 2023-01-16 08:42 | Emergency (ER) | payer MEDICARE, MEDICAID, SELFPAY ==
[2023-01-16] VITALS (7 sets, daily range): BP systolic 143–182; BP diastolic 67–95; PULSE 63–79; RESP 16–20; TEMP 36.2; O2SAT 96–99; BMI 17.8
--- NOTE | 2023-01-16 08:51 | ECG_ITS ---
[facility] Test Date: 2023-01-16 Pat Name: Zaria Sheehan Department: Room: Gender: Female Heel Seat Flap Stapler: : 1965 Requested By: Ruy Maldonado Order Number: [id number] Gretel MD: Cachorro Garcia M.D. Measurements Intervals [place] Rate: 56 P: 61 NH: 166 QRS: 48 QRSD: 78 T: 68 QT: 431 QTc: 416 Interpretive Statements SINUS BRADYCARDIA Compared to ECG 11/23/2021 18:23:25 Sinus rhythm no longer present Electronically Signed On 01-16-2023 16:14:26 CDT by Cachorro Garcia M.D. [id number]
--- NOTE | 2023-01-16 08:53 | ED_ITS ---
HPI - Back Pain/Injury General: Chief Complaint: Back Pain/Injury Stated Complaint: lower back pain, possibly kidneys Time Seen by Provider: 01/16/23 08:45 Source: patient Mode of arrival: ambulatory History of Present Illness: 57 yo female presents emergency room complaint of left-sided low back pain. No dysuria urgency or frequency no fever sweats chills no hematuria she does have a history of nephrolithiasis. This pain not associated with urination. Is associated movement and with palpation she has been doing a lot of physical labor lately. MD elicited complaint: back pain Pertinent past history: prior back pain Onset (ago): day(s) Timing: constant Severity: moderate Similar Symptoms Previously: Yes Quality: sharp Location: lumbar spine Radiation: none Exacerbating factors: movement, sitting upright and walking Relieving factors: supine Associated symptoms: Deny abdominal pain, arthralgias, chills, change in bowel habits, difficulty walking, dysuria, fatigue, fecal incontinence, fever(s), hematuria, myalgias, nausea, numbness, syncope, tingling/numbness/burning, urinary frequency, urinary urgency, vomiting or weakness Review of Systems Const: Denies: fever(s), chills, fatigue or malaise ENMT: Denies: throat pain, ear or mastoid pain, nasal discharge or nasal congestion Card: Denies: chest pain, palpitations, irregular heart rhythm, edema or syncope Resp: Denies: dyspnea, productive cough or non-productive cough GI: Denies: abdominal pain, nausea, vomiting, fecal incontinence or change in bowel habits : Denies: dysuria, urinary frequency, urinary urgency or hematuria Musc: Reports: back pain; Denies: neck pain or extremity pain Skin/Breast: Denies: rash or pruritus Neuro: Denies: difficulty walking PFSH ED PFSH: Medical History Kidney stone Pneumonia Post hysterectomy menopause Sepsis Surgical History Tubal ligation status Social History Smoking and tobacco status: current every day smoker Physical Exam Const: GENERAL APPEARANCE: cooperative and comfortable ORIENTATION/CONSCIOUSNESS: Yes awake, Yes oriented to person, Yes oriented to place and Yes oriented to time HENMT: COMMON NORMALS: normocephalic, atraumatic and hearing grossly normal bilaterally HEAD & SCALP: normocephalic and atraumatic Resp: COMMON NORMALS: normal respiratory effort, No retractions, No use of accessory muscles and clear to auscultation bilaterally AUSCULTATION: clear to auscultation bilaterally Cardio: COMMON NORMALS: regular rate, regular rhythm and No murmurs present (Cardio) RATE: regular rate RHYTHM: regular rhythm GI: COMMON NORMALS: Soft to palpation and No hepatosplenomegaly present AUSCULTATION: Yes normoactive bowel sounds PALPATION: Yes Soft to palpation, No Tenderness to palpation present (GI), No Guarding due to palpation present (GI) and Yes No hepatosplenomegaly present Extremity: COMMON NORMALS: normal to inspection, capillary refill normal, no clubbing, cyanosis or edema, no calf tenderness and no pedal edema Neuro: SENSORIUM/ORIENTATION: Yes oriented to person, Yes oriented to place and Yes oriented to time Skin: COMMON NORMALS: no rashes or lesions noted GENERAL SKIN EXAM: no rashes or lesions noted Course Vital Signs: Vital signs: Vital Signs Temperature 97.1 F L 01/16/23 08:52 Pulse Rate 63 01/16/23 09:50 Respiratory Rate 20 H 01/16/23 09:43 Blood Pressure 143/67 01/16/23 10:42 Pulse Oximetry 96 01/16/23 10:42 Oxygen Delivery Me thod Room Air 01/16/23 08:52 MDM - Back Pain/Injury Medical Decision Making CT no evidence of stone Labs reviewed as well discussed with the patient. Musculoskeletal in nature will discharge home prednisone diclofenac and tizanidine as needed Medical Records I reviewed the patient's medical records. Labs I reviewed the patient's lab results. 01/16/23 09:22 01/16/23 09:22 Radiology Impressions Abdomen/Pelvis CT 01/16/23 09:31 IMPRESSION: 1. No hydronephrosis in either kidney. No obstructing renal or ureteral calculi. 2. Nonobstructing 3 mm LEFT renal parenchymal calculus. 3. Mild hepatomegaly. 4. Urine distended bladder. 5. Mild RIGHT colon and transverse colon constipation. 6. Mild disc bulging L3-L5. Mild central canal stenosis L3-L4 with impingement subarticular recess bilaterally. Impingement on the LEFT L4-L5 7. Prior hysterectomy. Laboratory Results WBC 7.0 10^3/uL (4.0-10.0) 01/16/23 09: RBC 4.47 10^6/uL (4.1-5.3) 01/16/23 09:22 Hgb 14.0 g/dL (11.5-15.3) 01/16/23 09: Hct 41.7 % (37.0-47.0) 01/16/23 09: MCV 93.3 fl (81-99) 01/16/23 09:22 MCH 31.3 pg (28.0-34.0) 01/16/23 09: MCHC 33.6 g/dL (30.0-36.0) 01/16/23 09: RDW 13.4 % (12.1-15.1) 01/16/23 09: Plt Count 304 10^3/cmm (130-400) 01/16/23 09: MPV 9.2 fL (7.4-10.4) 01/16/23 09:22 Neut % (Auto) 58.4 % 01/16/23 09:22 Lymph % (Auto) 34.5 % 01/16/23 09:22 [place] % (Auto) 5.4 % 01/16/23 09:22 Eos % (Auto) 0.7 % 01/16/23 09: Baso % (Auto) 0.7 % 01/16/23 09:22 Neut # (Auto) 4.10 10^3/uL (1.8-7.7) 01/16/23 09:22 Lymph # (Auto) 2.4 10^3/uL (0.8-4.8) 01/16/23 09:22 [place] # (Auto) 0.4 10^3/uL (0.2-0.9) 01/16/23 09: Eos # (Auto) 0.1 10^3/uL (0.0-0.8) 01/16/23 09:22 Baso # (Auto) 0.1 10^3/uL (0.0-0.1) 01/16/23 09: Nucleated RBC % (auto) 0 % 01/16/23 09:22 Nucleated RBCs # 0.0 /100WBC 01/16/23 09:22 Sodium 141 mmol/L (136-145) 01/16/23 09:22 Potassium 4.4 mmol/L (3.5-5.1) 01/16/23 09:22 Chloride 106 mmol/L (98-107) 01/16/23 09:22 Carbon Dioxide 26 mmol/L (22-29) 01/16/23 09:22 Anion Gap 13.4 (5-19) 01/16/23 09:22 BUN 14 mg/dL (6-20) 01/16/23 09:22 Creatinine 0.8 mg/dL (0.5-0.9) 01/16/23 09:22 GFR Calculation 74.5 mL/min (90-130) L 01/16/23 09:22 Glucose 86 mg/dL (65-115) 01/16/23 09:22 Calculated Osmolality 292 mOsm/kg (285-295) 01/16/23 09:22 Calcium 8.7 mg/dL (8.5-10.5) 01/16/23 09:22 Total Bilirubin 0.2 mg/dL (0.15-1.2) 01/16/23 09:22 AST 38 U/L (0-32) H 01/16/23 09:22 ALT 35 U/L (0-33) H 01/16/23 09:22 Alkaline Phosphatase 139 U/L (35-105) H 01/16/23 09:22 Creatine Kinase 390 U/L (26-192) H* 01/16/23 09:22 Total Protein 7.5 g/dL (6.6-8.7) 01/16/23 09:22 Albumin 4.1 g/dL (3.5-5.2) 01/16/23 09:22 Globulin 3.4 g/dL (1.3-4.6) 01/16/23 09:22 Lipase 74 U/L (13-60) H 01/16/23 09:22 Urine Color Yellow (Yellow) 01/16/23 09:47 Urine Appearance Clear (CLEAR) 01/16/23 09:47 Urine pH 7 (5-7) 01/16/23 09:47 Ur Specific [place] 1.010 (1.005-1.030) 01/16/23 09:47 Urine Protein Neg (Negative) 01/16/23 09:47 Urine Glucose (UA) Norm (Normal) 01/16/23 09:47 Urine Ketones Negative (Negative) 01/16/23 09:47 Urine Blood Neg (Negative) 01/16/23 09:47 Urine Nitrate Negative (Negative) 01/16/23 09:47 Urine Bilirubin Neg (Negative) 01/16/23 09:47 Urine Urobilinogen Neg mg/dL (Negative) 01/16/23 09:47 Ur Leukocyte Esterase Negative (Negative) 01/16/23 09:47 Discharge Plan Discharge Patient Disposition: Home Clinical Impression: Strain of lumbar region Condition: Stable Prescriptions: New prednisone 20 mg tablet 20 mg PO TID Qty: 15 0RF Rx Instructions: 1 p.o. 3 times daily x3 days, 1 p.o. twice daily x2 days, 1 p.o. daily x2 days diclofenac sodium 75 mg tablet,delayed release (DR/EC) 75 mg PO Q12H PRN (Reason: pain) Qty: 20 0RF tizanidine 4 mg tablet 2 mg PO Q6H PRN (Reason: muscle spasticity) Qty: 10 0RF Rx Instructions: do not exceed 3 doses per 24 hrs Held meloxicam 15 mg tablet 15 mg PO DAILY Hold Instructions: Resume on 01/25/23. No Action diazepam 5 mg tablet 5 mg PO BEDTIME escitalopram oxalate 10 mg tablet 10 mg PO DAILY Discharge Orders: Discharge ED (Routine); Ordered 01/16/23 Ordered By: uRy Fitzgerald Referrals: Taryn Barr [Primary Care Provider] - Discharge Diet: Usual diet Discharge Activity: Resume usual activity Patient Instructions: Opioid Safety, Pain Management Activity Restrictions/Additional Instructions: You are seen today from back pain. Labs and imaging are unremarkable there is no sign of a kidney stone. Your pain is more characteristic of musculoskeletal pain. Use the medications prescribed as needed. Do not take diclofenac and meloxicam at the same time recommend using diclofenac for the next week. Follow-up with your doctor if not improving. Coding Level of Care Code ED Community Health Coordinator for William Siddiqui
--- NOTE | 2023-01-16 09:31 | CT_ITS ---
WS: [id number] CT ABDOMEN PELVIS TECHNIQUE: Noncontrast CT of the abdomen and pelvis with coronal and sagittal reformatted images. CLINICAL INFORMATION: flank pain COMPARISON: CT January 14, 2021 DLP: 274.[address] scans at [facility] use at least one of these dose optimization techniques: automated e xposure control; mA and/or kV adjustment per patient size (includes targeted exams where dose is matc hed to clinical indication); or iterative reconstruction. FINDINGS: Hepatomegaly. Enlarged RIGHT hepatic lobe. Slight atelectasis RIGHT lower lobe. LEFT lung base is wel l aerated. Calcified granulomas. Adrenal glands are normal. No hydronephrosis. Splenic granulomas. No rmal GE junction. Noncontrast pancreas is normal. Gallbladder is contracted. Urine distended bladder. Transverse colon and RIGHT colon constipation. Prior hysterectomy. No obstructing RIGHT renal or ure teral calculi. No obstructing LEFT renal or ureteral calculi. Nonobstructing LEFT renal parenchymal c alculus measuring 3 mm. Mild disc bulging L3-L5. Mild central canal stenosis L3-L4 with impingement subarticular recess bilat erally. Impingement on the LEFT L4-L5 subarticular recess. Contact of the traversing S1 nerve roots L 5-S1. Moderate to advanced facet arthropathy L3-L4 L4-L5 and L5-S1 CT/CT kidney stone [id number] IMPRESSION: 1. No hydronephrosis in either kidney. No obstructing renal or ureteral calcul i. 2. Nonobstructing 3 mm LEFT renal parenchymal calculus. 3. Mild hepatomegaly. 4. Urine distended bladder. 5. Mild RIGHT colon and transverse colon constipation. 6. Mild disc bulging L3-L5. Mild central canal stenosis L3-L4 with impingement subarticular recess bilaterally. Impingement on the LEFT L4-L5 7. Prior hysterectomy.
[2023-01-16 09:36] LABS: Basophils # 0.1 10^3/uL (0.0-0.1); Basophils % 0.7 %; Eosinophils # 0.1 10^3/uL (0.0-0.8); Eosinophils % 0.7 %; Hematocrit 41.7 % (37.0-47.0); Lymphocytes # 2.4 10^3/uL (0.8-4.8); Lymphocytes % 34.5 %; Mean Corpuscular HGB Conc 33.6 g/dL (30.0-36.0); Mean Corpuscular Hemoglobin 31.3 pg (28.0-34.0); Mean Corpuscular Volume 93.3 fl (81-99); Mean Platelet Volume 9.2 fL (7.4-10.4); Monocytes # 0.4 10^3/uL (0.2-0.9); Monocytes % 5.4 %; Neutrophils % 58.4 %; Nucleated Red Blood Cells % 0 %; Platelet Count 304 10^3/cmm (130-400); Red Blood Count 4.47 10^6/uL (4.1-5.3); Red Cell Distribution Width 13.4 % (12.1-15.1)
[2023-01-16] MEDS: sodium chloride 0.9% 1,000 ML 999 ML IV (09:36)
[2023-01-16] MEDS: tizanidine 4 mg Tablet 2 MG PO (09:36)
[2023-01-16] MEDS: dexamethasone 10 mg/mL INJ IVP (09:43)
[2023-01-16] MEDS: morphine 4 mg/mL SDV 1 mL IVP (09:43)
[2023-01-16 09:50] LABS: Alanine Aminotransferase 35 U/L (0-33); Albumin Level 4.1 g/dL (3.5-5.2); Alkaline Phosphatase 139 U/L (35-105); Anion Gap 13.4 (5-19); Aspartate Amino Transferase 38 U/L (0-32); Blood Urea Nitrogen 14 mg/dL (6-20); Calcium 8.7 mg/dL (8.5-10.5); Carbon Dioxide 26 mmol/L (22-29); Chloride 106 mmol/L (98-107); Globulin 3.4 g/dL (1.3-4.6); Glomerular Filtration Rate 74.5 mL/min (90-130); Glucose 86 mg/dL (65-115); Lipase 74 U/L (13-60); Osmolality Calculated 292 mOsm/kg (285-295); Potassium 4.4 mmol/L (3.5-5.1); Sodium 141 mmol/L (136-145); Total Bilirubin 0.2 mg/dL (0.15-1.2); Total Protein 7.5 g/dL (6.6-8.7)
[2023-01-16 09:56] LABS: Creatine Phosphokinase 390 U/L (26-192)
[2023-01-16] MEDS: hyDRALAzine 20 mg/mL INJ 1 mL IVP (10:03)
[2023-01-16 10:05] LABS: Add Urine Microscopic? NO; Charge for UA Resulting for Rev
[2023-01-16 10:14] LABS: Bilirubin Urine Neg (Negative); Blood Urine Neg (Negative); Glucose Urine UA Norm (Normal); Ketones Urine Negative (Negative); Leukocyte Esterase Urine Negative (Negative); Nitrate Urine Negative (Negative); Protein Urine Neg (Negative); Urine Appearance Clear (CLEAR); Urine Color Yellow (Yellow); Urobilinogen Urine Neg (Negative); pH Urine 7 (5-7)
== END 2023-01-16 11:35 | disposition home or self-care (01) ==
PROVIDERS: Emergency Provider Family Medicine; PCP Registered Nurse
DX: S39.012A Strain of muscle, fascia and tendon of lower back, initial encounter (principal); F17.210 Nicotine dependence, cigarettes, uncomplicated; X58.XXXA Exposure to other specified factors, initial encounter
CPT/HCPCS: 74176; 80053; 81003; 82550; 83690; 85025; 93005; 96361; 96374; 96375; 99285; J0360; J1100; J2270; J7030

== ENCOUNTER 2023-01-18 15:45 | Emergency (ER) | payer MEDICARE, MEDICAID, SELFPAY ==
[2023-01-18 16:06] VITALS: BP 207/104; PULSE 74; RESP 16; TEMP 36.4; O2SAT 95; BMI 18.3
--- NOTE | 2023-01-18 16:42 | ED_ITS ---
HPI - Abdominal Pain General: Chief Complaint: Abdominal Pain Stated Complaint: Nausea and Weakness Time Seen by Provider: 01/18/23 16:32 History of Present Illness: Patient comes in with high blood pressure, nausea, and vomiting that started this morning. States that she originally presented to the emergency department because her blood pressure was elevated. Upon arrival here she states she started to throw up. States she is thrown up multiple times. She states that she feels better at this point and is ready to go home. Her physical exam is unremarkable. I did talk to her about checking blood work and she states she does not want me to. She states that she feels much better and would like to leave. At this point I do not see any reason to have her sign out AMA as her vital signs are okay except her blood pressure is slightly elevated in the 170s systolic. Associated Symptoms: Reports nausea and vomiting; Denies dysuria and fever(s) Review of Systems Const: Denies: fever(s) or body aches Eyes: Denies: change in vision or blurry vision ENMT: Denies: throat pain or odynophagia Card: Denies: chest pain or palpitations Resp: Denies: dyspnea or productive cough GI: Reports: nausea and vomiting : Denies: flank pain or dysuria Musc: Denies: neck pain or back pain Skin/Breast: Denies: rash or pruritus Neuro: Denies: headache(s) or numbness in extremities PFSH ED PFSH: Medical History Kidney stone Pneumonia Post hysterectomy menopause Sepsis Surgical History Tubal ligation status Social History Smoking and tobacco status: current every day smoker Physical Exam Const: COMMON NORMALS: no acute distress, patient oriented x3, healthy appearing and alert HENMT: COMMON NORMALS: normocephalic and atraumatic HEAD & SCALP: normocephalic and atraumatic Eye: COMMON NORMALS: Equal, round and reactive pupils present and EOMs intact bilaterally PUPIL: Yes Equal, round and reactive pupils present Neck/C-Spine: COMMON NORMALS: full ROM and supple Resp: COMMON NORMALS: normal respiratory effort, No retractions and No use of accessory muscles Cardio: COMMON NORMALS: regular rate and regular rhythm RATE: regular rate RHYTHM: regular rhythm GI: COMMON NORMALS: Normal to inspection, nondistended, normoactive bowel sounds present, Soft to palpation and non-tender PALPATION: Yes Soft to palpation Extremity: COMMON NORMALS: normal to inspection and full ROM Neuro: COMMON NORMALS: patient oriented x3 SENSORIUM/ORIENTATION: Yes alert Psych: COMMON NORMALS: mental status grossly normal and cooperative Course Vital Signs: Vital signs: Vital Signs Temperature 97.6 F 01/18/23 16:06 Pulse Rate 74 01/18/23 16:06 Respiratory Rate 16 01/18/23 16:06 Blood Pressure 207/104 01/18/23 16:06 Pulse Oximetry 95 01/18/23 16:06 Oxygen Delivery Me thod Room Air 01/18/23 16:06 MDM - Abdominal Pain Medical Decision Making Patient comes in with high blood pressure, nausea, and vomiting that started this morning. States that she originally presented to the emergency department because her blood pressure was elevated. Upon arrival here she states she started to throw up. States she is thrown up multiple times. She states that she feels better at this point and is ready to go home. Her physical exam is unremarkable. I did talk to her about checking blood work and she states she does not want me to. She states that she feels much better and would like to leave. At this point I do not see any reason to have her sign out AMA as her vital signs are okay except her blood pressure is slightly elevated in the 170s systolic. Her physical exam is unremarkable. Will discharge at this time with precautions to return for worsening or changing symptoms. Discharge Plan Discharge Patient Disposition: Home Clinical Impression: Vomiting Condition: Stable Prescriptions: No Action meloxicam 15 mg tablet 15 mg PO DAILY Hold Instructions: Resume on 01/25/23. diazepam 5 mg tablet 5 mg PO BEDTIME escitalopram oxalate 10 mg tablet 10 mg PO DAILY tizanidine 4 mg tablet 2 mg PO Q6H PRN (Reason: muscle spasticity) Qty: 10 0RF Rx Instructions: do not exceed 3 doses per 24 hrs prednisone 20 mg tablet 20 mg PO TID Qty: 15 0RF Rx Instructions: 1 p.o. 3 times daily x3 days, 1 p.o. twice daily x2 days, 1 p.o. daily x2 days diclofenac sodium 75 mg tablet,delayed release (DR/EC) 75 mg PO Q12H PRN (Reason: pain) Qty: 20 0RF Discharge Orders: Discharge ED (Routine); Ordered 01/18/23 Ordered By: Jj Borjas Referrals: Taryn Barr [Primary Care Provider] - Patient Instructions: Vomiting - Adult Coding Level of Care Code ED Supervisor Phosphoric Acid for William Siddiqui
== END 2023-01-18 16:48 | disposition home or self-care (01) ==
PROVIDERS: Emergency Provider Emergency Medicine; PCP Registered Nurse
DX: R11.11 Vomiting without nausea (principal); F17.210 Nicotine dependence, cigarettes, uncomplicated
CPT/HCPCS: 99282

== ENCOUNTER 2023-05-12 09:31 | Emergency (ER) | payer MEDICARE, MEDICAID, SELFPAY ==
[2023-05-12 09:38] VITALS: BMI 17.6
[2023-05-12 09:41] VITALS: BP 190/85; PULSE 58; RESP 16; TEMP 37.1; O2SAT 95
--- NOTE | 2023-05-12 09:47 | XRR_ITS ---
PROCEDURE INFORMATION: Exam: XR Chest Exam date and time: 05/12/2023 10:00 AM Age: 57 years old Clinical indication: Cough and dyspnea; Patient HX: HX of uterine cancer; Additional info: Dyspnea/cough TECHNIQUE: Imaging protocol: Radiologic exam of the chest. Views: 1 view. COMPARISON: CR XR chest 1V portable [id number] 08/20/2022 6:13 PM FINDINGS: Lungs: Scattered calcified granulomas Pleural spaces: Mild right apical pleural thickening. Heart/Mediastinum: Unremarkable. No cardiomegaly. Bones/joints: Unremarkable. XR/XR chest 1V portable [id number] IMPRESSION: No acute pulmonary disease process
--- NOTE | 2023-05-12 09:47 | ECG_ITS ---
[facility] Test Date: 2023-05-12 Pat Name: Zaria Sheehan Department: Room: Gender: Female Batch Analyst: : 1965 Requested By: Ruy Maldonado Order Number: [id number] Gretel MD: Brianna Enriquez M.D. Measurements Intervals [place] Rate: 55 P: 15 ME: 135 QRS: 48 QRSD: 79 T: 64 QT: 405 QTc: 388 Interpretive Statements SINUS BRADYCARDIA Compared to ECG 01/16/2023 09:33:02 No significant changes Electronically Signed On 05-12-2023 17:15:48 CDT by Brianna Enriquez M.D. [id number]
[2023-05-12 10:01] LABS: Basophils % 0.8 %; Eosinophils % 0.8 %; Hematocrit 38.4 % (37.0-47.0); Hemoglobin 12.8 g/dL (11.5-15.3); Lymphocytes # 1.7 10^3/uL (0.8-4.8); Lymphocytes % 35.9 %; Mean Corpuscular HGB Conc 33.3 g/dL (30.0-36.0); Mean Corpuscular Hemoglobin 31.4 pg (28.0-34.0); Mean Corpuscular Volume 94.1 fl (81-99); Mean Platelet Volume 9.1 fL (7.4-10.4); Monocytes # 0.4 10^3/uL (0.2-0.9); Monocytes % 7.5 %; Neutrophils # 2.64 10^3/uL (1.8-7.7); Neutrophils % 54.8 %; Nucleated Red Blood Cells % 0 %; Platelet Count 267 10^3/cmm (130-400); Red Blood Count 4.08 10^6/uL (4.1-5.3); Red Cell Distribution Width 12.2 % (12.1-15.1); White Blood Count 4.8 10^3/uL (4.0-10.0)
[2023-05-12 10:11] VITALS: BP 169/84; PULSE 78; O2SAT 96
[2023-05-12] MEDS: amlodipine 10 mg Tablet PO (10:16)
[2023-05-12] MEDS: hyDRALAzine 20 mg/mL INJ 1 mL IVP (10:16)
[2023-05-12 10:19] LABS: Alanine Aminotransferase 26 U/L (0-33); Albumin Level 3.8 g/dL (3.5-5.2); Alkaline Phosphatase 100 U/L (35-105); Anion Gap 12.4 (5-19); Aspartate Amino Transferase 32 U/L (0-32); Blood Urea Nitrogen 17 mg/dL (6-20); Carbon Dioxide 26 mmol/L (22-29); Chloride 106 mmol/L (98-107); Globulin 2.9 g/dL (1.3-4.6); Glomerular Filtration Rate 128.1 mL/min (90-130); Glucose 93 mg/dL (65-115); Osmolality Calculated 291 mOsm/kg (285-295); Potassium 4.4 mmol/L (3.5-5.1); Sodium 140 mmol/L (136-145); Total Bilirubin 0.2 mg/dL (0.15-1.2); Total Protein 6.7 g/dL (6.6-8.7)
--- NOTE | 2023-05-12 10:26 | PC.PHAR ---
pt states she takes care of her own medications-pt states she takes diazepam 5mg hs prn rx filled 03/27/23 30d/s and mobic 15mg daily prn filled 01/27/23 30d/s-pt states she use to take lexapro 10mg daily pt states she no longer takes states it makes her blood pressure go up rx last filled 11/14/22 90d/s-pt states she has been taking some antibiotics that her friend gave her states she thinks it was keflex 500mg bid states she has been taking for maybe 2 weeks states she was taking it for her kidneys-
[2023-05-12 11:10] VITALS: BP 171/78
--- NOTE | 2023-05-12 14:21 | ED_ITS ---
HPI - General Adult General: Chief complaint: General Medical Stated complaint: high bp Time Seen by Provider: 05/12/23 09:34 Source: patient Mode of arrival: ambulatory History of Present Illness: 57-year-old female presents emergency room with elevated blood pressure. She had a bit of a headache as well as some intermittent epigastric discomfort but nothing that is persistent no associated shortness of breath no nausea vomiting diarrhea or diaphoresis. No difficulty speech swallowing vision or gait or balance. She still has a bit of a headache on arrival here. Onset (ago): minute(s) Severity: moderate Relieving factors: none Exacerbating factors: none Associated symptoms: Reports headache(s); Deny chest pain, confusion, cough, diaphoresis, decreased appetite, dyspnea, fevers/chills, malaise, nausea, rash, palpitations, seizures, short of breath, syncope, vomiting or weakness Treatments prior to arrival: none Review of Systems Const: Denies: fever(s), chills, fatigue, malaise or diaphoresis ENMT: Denies: throat pain, ear or mastoid pain, nasal discharge or nasal congestion Card: Denies: chest pain, palpitations or syncope Resp: Denies: dyspnea GI: Denies: abdominal pain, nausea or vomiting : Denies: flank pain, difficulty voiding, dysuria, urinary frequency or urinary urgency Musc: Denies: neck pain, back pain or extremity pain Skin/Breast: Denies: rash Neuro: Reports: headache(s); Denies: numbness in extremities, weakness in extremities or confusion PFSH ED PFSH: Medical History Kidney stone Pneumonia Post hysterectomy menopause Sepsis Surgical History Tubal ligation status Social History Smoking and tobacco status: current every day smoker Physical Exam Const: GENERAL APPEARANCE: cooperative and comfortable ORIENTATION/CONSCIOUSNESS: Yes awake, Yes oriented to person, Yes oriented to place and Yes oriented to time HENMT: COMMON NORMALS: normocephalic, atraumatic and hearing grossly normal bilaterally HEAD & SCALP: normocephalic and atraumatic Resp: COMMON NORMALS: normal respiratory effort, No retractions, No use of accessory muscles and clear to auscultation bilaterally AUSCULTATION: clear to auscultation bilaterally Cardio: COMMON NORMALS: regular rate, regular rhythm and No murmurs present (Cardio) RATE: regular rate RHYTHM: regular rhythm GI: COMMON NORMALS: Soft to palpation and No hepatosplenomegaly present AUSCULTATION: Yes normoactive bowel sounds PALPATION: Yes Soft to palpation, No Tenderness to palpation present (GI), No Guarding due to palpation present (GI) and Yes No hepatosplenomegaly present Extremity: COMMON NORMALS: normal to inspection, capillary refill normal, no clubbing, cyanosis or edema, no calf tenderness and no pedal edema Neuro: SENSORIUM/ORIENTATION: Yes oriented to person, Yes oriented to place and Yes oriented to time OTHER: No focal neurologic deficits are noted. Normal facial symmetry motor strength in all 4 extremities equal sensation normal no nystagmus no visual defects. Skin: COMMON NORMALS: no rashes or lesions noted GENERAL SKIN EXAM: no rashes or lesions noted Course Vital Signs: Vital signs: Vital Signs Temperature 98.8 F 05/12/23 09:41 Pulse Rate 78 05/12/23 10:11 Respiratory Rate 16 05/12/23 09:41 Blood Pressure 171/78 05/12/23 11:10 Pulse Oximetry 96 05/12/23 10:11 Oxygen Delivery Me thod Room Air 05/12/23 09:41 [facility] - General Adult Medical Decision Making Headache improved his blood pressure improved still present but improved from when she first arrived. We will discharge patient home on amlodipine and lisinopril. Recheck with primary care doctor within the week to review blood pressure control. Return if has further problems. Labs imaging and EKG reviewed no acute changes no significant abnormalities. Medical Records I reviewed the patient's medical records. Lab Data I reviewed the patient's lab results. 05/12/23 09:54 05/12/23 09:54 Radiology Impressions Chest X-Ray 05/12/23 09:47 IMPRESSION: No acute pulmonary disease process Laboratory Results WBC 4.8 10^3/uL (4.0-10.0) 05/12/23 09:54 RBC 4.08 10^6/uL (4.1-5.3) L 05/12/23 09:54 Hgb 12.8 g/dL (11.5-15.3) 05/12/23 09:54 Hct 38.4 % (37.0-47.0) 05/12/23 09:54 MCV 94.1 fl (81-99) 05/12/23 09:54 MCH 31.4 pg (28.0-34.0) 05/12/23 09:54 MCHC 33.3 g/dL (30.0-36.0) 05/12/23 09:54 RDW 12.2 % (12.1-15.1) 05/12/23 09:54 Plt Count 267 10^3/cmm (130-400) 05/12/23 09:54 MPV 9.1 fL (7.4-10.4) 05/12/23 09:54 Neut % (Auto) 54.8 % 05/12/23 09:54 Lymph % (Auto) 35.9 % 05/12/23 09:54 [place] % (Auto) 7.5 % 05/12/23 09:54 Eos % (Auto) 0.8 % 05/12/23 09:54 Baso % (Auto) 0.8 % 05/12/23 09:54 Neut # (Auto) 2.64 10^3/uL (1.8-7.7) 05/12/23 09:54 Lymph # (Auto) 1.7 10^3/uL (0.8-4.8) 05/12/23 09:54 [place] # (Auto) 0.4 10^3/uL (0.2-0.9) 05/12/23 09:54 Eos # (Auto) 0.0 10^3/uL (0.0-0.8) 05/12/23 09:54 Baso # (Auto) 0.0 10^3/uL (0.0-0.1) 05/12/23 09:54 Nucleated RBC % (auto) 0 % 05/12/23 09:54 Nucleated RBCs # 0.0 /100WBC 05/12/23 09:54 Sodium 140 mmol/L (136-145) 05/12/23 09:54 Potassium 4.4 mmol/L (3.5-5.1) 05/12/23 09:54 Chloride 106 mmol/L (98-107) 05/12/23 09:54 Carbon Dioxide 26 mmol/L (22-29) 05/12/23 09:54 Anion Gap 12.4 (5-19) 05/12/23 09:54 BUN 17 mg/dL (6-20) 05/12/23 09:54 Creatinine 0.5 mg/dL (0.5-0.9) 05/12/23 09:54 GFR Calculation 128.1 mL/min (90-130) 05/12/23 09:54 Glucose 93 mg/dL (65-115) 05/12/23 09:54 Calculated Osmolality 291 mOsm/kg (285-295) 05/12/23 09:54 Calcium 9.0 mg/dL (8.5-10.5) 05/12/23 09:54 Total Bilirubin 0.2 mg/dL (0.15-1.2) 05/12/23 09:54 AST 32 U/L (0-32) 05/12/23 09:54 ALT 26 U/L (0-33) 05/12/23 09:54 Alkaline Phosphatase 100 U/L (35-105) 05/12/23 09:54 Total Protein 6.7 g/dL (6.6-8.7) 05/12/23 09:54 Albumin 3.8 g/dL (3.5-5.2) 05/12/23 09:54 Globulin 2.9 g/dL (1.3-4.6) 05/12/23 09:54 Discharge Plan Discharge Patient Disposition: Home Clinical Impression: HTN (hypertension) Condition: Stable Prescriptions: New amlodipine 5 mg tablet 5 mg PO DAILY Qty: 30 0RF lisinopril 10 mg tablet 10 mg PO DAILY Qty: 30 0RF No Action meloxicam 15 mg tablet 15 mg PO DAILY PRN (Reason: Pain) Hold Instructions: Resume on 01/25/23. diazepam 5 mg tablet 5 mg PO BEDTIME PRN (Reason: Anxiety) Keflex 500 mg Capsule 500 mg PO BID Discharge Orders: Discharge ED (Routine); Ordered 05/12/23 Ordered By: Ruy Fitzgerald Referrals: Taryn Barr [Primary Care Provider] - Discharge Diet: Usual diet Discharge Activity: Resume usual activity Patient Instructions: Opioid Safety, Pain Management Activity Restrictions/Additional Instructions: You are seen today for elevated blood pressure. You should recheck your blood pressure with your primary care doctor by the end of the week. Start the 2 medications given amlodipine 5 mg daily and lisinopril 10 mg daily. Coding Level of Care Code ED It Security Specialist for William Siddiqui
== END 2023-05-12 11:11 | disposition home or self-care (01) ==
PROVIDERS: Emergency Provider Family Medicine; PCP Registered Nurse
DX: I10 Essential (primary) hypertension (principal); F17.210 Nicotine dependence, cigarettes, uncomplicated
CPT/HCPCS: 71045; 80053; 85025; 93005; 96374; 99285; J0360

== ENCOUNTER 2023-10-22 12:39 | Outpatient (CLI) | payer MEDICARE, SELFPAY ==
--- NOTE | 2023-10-22 12:57 | US_ITS ---
WS: [id number] THYROID ULTRASOUND HISTORY: AUTOIMMUNE HYPOTHYROIDISM COMPARISON: None available. Right lobe: 1.3 cm x 2.0 cm x 4.3 cm (w x ap x l). Volume: 6.0 cm3. Mildly enlarged very heterogeneous and hypervascular thyroid. Nodular goiter. No discrete nodules are identified. Left lobe: 1.3 cm x 1.3 cm x 3.4 cm (w x ap x l). Volume: 3.0 cm3. Normal sized gland with very coarse echotexture throughout. Mild increased vascularity. No nodule. Isthmus: 0.3 cm. IMPRESSION: 1. Mildly enlarged thyroid gland with hypervascularity. Suspect acute thyroiditis. 2. No discrete nodules.
== END 2023-10-22 12:40 | disposition home or self-care (01) ==
LOC: RAD 12:40
PROVIDERS: PCP Registered Nurse; Visit Provider Nurse Practitioner Family
DX: E06.3 Autoimmune thyroiditis (principal)
CPT/HCPCS: 76536

== ENCOUNTER → 2023-11-18 08:01 | Outpatient (BNVA) | payer MEDICARE, SELFPAY | PROVIDERS: PCP Registered Nurse; Referring Provider Nurse Practitioner Family; Visit Provider Internal Medicine | DX: E03.9 Hypothyroidism, unspecified (principal); E06.3 Autoimmune thyroiditis; R05.9 Cough, unspecified | CPT/HCPCS: 99204 ==

== ENCOUNTER 2024-11-23 12:48 | Emergency (ER) | payer MEDICARE, SELFPAY ==
--- NOTE | 2024-11-23 12:49 | ECG_ITS ---
[facility] Test Date: 2024-11-23 Pat Name: Zaria Sheehan Department: Room: Gender: Female Pile Driver: : [id number] Requested By: Sarah Hernandez Order Number: [id number] Gretel MD: Carlos Otto M.D. Measurements Intervals Wallace Rate: 65 P: 55 FL: 150 QRS: 23 QRSD: 77 T: 59 QT: 391 QTc: 407 Interpretive Statements SINUS RHYTHM Compared to ECG 05/12/2023 09:46:17 Sinus bradycardia no longer present Electronically Signed On 11-27-2024 18:12:14 CONTRACT MODELER by Carlos Otto M.D. [email or web address] [id number]
--- NOTE | 2024-11-23 12:49 | XRR_ITS ---
PROCEDURE INFORMATION: Exam: XR Chest Exam date and time: 11/23/2024 1:11 PM Age: 59 years old Clinical indication: Pain; Right-sided; HX of uterine cancer; Additional info: Chest pain TECHNIQUE: Imaging protocol: Radiologic exam of the chest. Views: 1 view. COMPARISON: CR XR chest 1V portable [id number] 05/12/2023 10:00 AM FINDINGS: Lungs: Calcified pulmonary granulomata are present. No acute pulmonary pathology. Pleural spaces: No pleural effusion. Heart/Mediastinum: Cardiomediastinal contours within normal limits. Bones/joints: No significant pathology. XR/XR chest 1V portable [id number] IMPRESSION: No acute pathology or significant interval change given technique.
[2024-11-23 12:53] VITALS: BP 158/86; PULSE 68; TEMP 36.7; O2SAT 96; BMI 18.0
[2024-11-23 13:09] LABS: Basophils % 0.4 %; Eosinophils # 0.1 10^3/uL (0.0-0.8); Eosinophils % 1.1 %; Hematocrit 39.7 % (36-47); Lymphocytes # 2.6 10^3/uL (0.8-4.8); Lymphocytes % 54.4 %; Mean Corpuscular HGB Conc 33.5 g/dL (30-55); Mean Corpuscular Hemoglobin 31.9 pg (27-33); Mean Corpuscular Volume 95.2 fl (85-98); Mean Platelet Volume 8.9 fL (7.4-10.4); Monocytes # 0.4 10^3/uL (0.2-0.9); Monocytes % 7.8 %; Neutrophils # 1.72 10^3/uL (1.8-7.7); Neutrophils % 36.1 %; Nucleated Red Blood Cells % 0 %; Platelet Count 272 10^3/cmm (157-399); Red Blood Count 4.17 10^6/uL (3.85-5.65); Red Cell Distribution Width 12.1 % (12.1-15.1); White Blood Count 4.76 10^3/uL (3.29-11.43)
[2024-11-23 13:25] LABS: Alanine Aminotransferase 70 U/L (0-33); Albumin Level 3.9 g/dL (3.5-5.2); Alkaline Phosphatase 134 U/L (35-105); Anion Gap 12.9 (5-19); Aspartate Amino Transferase 70 U/L (0-32); Blood Urea Nitrogen 17 mg/dL (6-20); Calcium 9.1 mg/dL (8.5-10.5); Carbon Dioxide 24 mmol/L (22-29); Chloride 107 mmol/L (98-107); Creatinine Clr Calc Pharmacy 84.7103; Globulin 2.7 g/dL (1.3-4.6); Glucose 95 mg/dL (65-115); Osmolality Calculated 289 mOsm/kg (285-295); Potassium 4.9 mmol/L (3.5-5.1); Sodium 139 mmol/L (136-145); Total Bilirubin 0.2 mg/dL (0.15-1.2); Total Protein 6.6 g/dL (6.6-8.7)
[2024-11-23 13:26] LABS: Troponin(5th) Baseline < 6 ng/L (0-10)
--- NOTE | 2024-11-23 13:29 | ED_ITS ---
HPI - Back Pain/Injury 2 General: Chief Complaint: Back Pain/Injury Stated Complaint: chest pain Time Seen by Provider: 11/23/24 13:15 Source: patient Mode of arrival: ambulatory Limitations: no limitations History of Present Illness: 59-year-old female presents to the ER co mplaining of back pain. Patient states this started last week and states she has been having muscle like spasms on the right side of her back that last for 5 minutes. Patient states the pain is exacerbated when she stands up and walks around or takes a deep breath. Thinks maybe it could be due to coughing and she smokes and has had recent URI like symptoms. No fevers or increased or changed sputum production. No hemoptysis. She denies of any trauma or falls. Patient has been using biofreeze patches without much relief. She states she has not had no prior episodes similar to this. She reports to having dysuria and hematuria noticed on Friday but these have subsided. Patient denies chest pain, palpitations, wheezing, shortness of breath, abdominal pain, N/V/D. No rash. MD elicited complaint: back pain Onset (ago): day(s) Timing: intermittent Severity: severe Pain scale (0-10): 10 Quality: sharp and spasming Location: right upper back Radiation: none Exacerbating factors: movement and deep breaths Relieving factors: none Context: unknown Associated symptoms: Reports dysuria (two episodes several days ago-subsided now), hematuria (subsided now) and urinary frequency; Deny abdominal pain, chills, change in bowel habits, difficulty walking, fatigue, fecal incontinence, fever(s), nausea, numbness, syncope, tingling/numbness/burning, urinary urgency or vomiting Work related injury: No Related Data Home Medications ?Medication ?Instructions ?Recorded ?Confirmed diazepam 5 mg tablet 5 mg PO BEDTIME PRN Anxiety 01/16/23 02/26/24 cephalexin 500 mg capsule 500 mg PO BID 05/12/2302/25 Previous Rx's ?Medication ?Instructions ?Recorded amlodipine 5 mg tablet 5 mg PO DAILY #30 tabs 05/12 lisinopril 10 mg tablet 10 mg PO DAILY #30 tabs 04/23 10/14 diclofenac sodium 50 mg 50 mg PO Q12H PRN pain #20 t abs 03/04/25 tablet,delayed release methocarbamol 500 mg tablet 1,000 mg (2 x 500 mg) PO Q 8H #30 11/23/24 tabs Allergies Allergy/AdvReac Type Severity Reaction Status Date / Time codeine Allergy ADR-Itching Verified 11/23/24 13:03 Review of Systems 2 Const: Denies: fever(s), chills, body aches, change in appetite, fatigue or malaise Card: Denies: chest pain, palpitations, irregular heart rhythm, edema, swelling of feet/ankles, lightheadedness, syncope, pre-syncope, dyspnea on exertion, orthopnea, leg pain with exertion or acrocyanosis Resp: Reports: non-productive cough ( smoker's cough ) and pain on inspiration; Denies: dyspnea, productive cough, wheezing, stridor, change in phlegm color or hemoptysis GI: Denies: abdominal pain, nausea, vomiting, diarrhea, constipation, fecal incontinence or change in bowel habits : Reports: dysuria (two episodes several days ago-subsided now) and hematuria (subsided now); Denies: flank pain or urinary urgency Musc: Reports: back pain and limited range of motion; Denies: neck pain, extremity pain, extremity swelling, joint swelling, joint redness or joint warmth Skin/Breast: Denies: rash or erythema Neuro: Denies: headache(s), numbness in extremities, weakness in extremities, sensory changes, lack of coordination, difficulty walking, frequent falls or dizziness PFSH ED 2 PFSH: Medical History Post hysterectomy menopause Pneumonia Kidney stone Sepsis Surgical History Tubal ligation status Social History Smoking and tobacco/nicotine status: current every day tobacco/nicotine user Physical Exam 2 Const: COMMON NORMALS: no acute distress, average body habitus, patient oriented x3, no limitations, healthy appearing, alert and well nourished G ENERAL APPEARANCE: cooperative ORIENTATION/CONSCIOUSNESS: Yes awake, Yes oriented to person, Yes oriented to place and Yes oriented to time Eye: COMMON NORMALS: no scleral icterus Neck/C-Spine: COMMON NORMALS: full ROM, no lymphadenopathy and no JVD Chest: COMMONS NORMALS: normal inspection of the chest and normal palpation of entire chest wall Resp: COMMON NORMALS: normal respiratory effort, No use of accessory muscles and clear to auscultation bilaterally EFFORT & INSPECTION: Yes able to speak in complete sentences AUSCULTATION: clear to auscultation bilaterally Cardio: COMMON NORMALS: no JVD, regular rate and regular rhythm RATE: r egular rate RHYTHM: regular rhythm GI: COMMON NORMALS: Normal to inspection, nondistended, normoactive bowel sounds present, Soft to palpation, non-tender, No hepatosplenomegaly present and no masses INSPECTION: Yes normal to inspection AUSCULTATION: Yes normoactive bowel sounds PALPATION: Yes Soft to palpation, No Tenderness to palpation present (GI), No Guarding due to palpation present (GI), No Rigid due to palpation and Yes No hepatosplenomegaly present : COMMON NORMALS: Yes no CVA tenderness BLADDER/KIDNEY EXAM: Yes no CVA tenderness Back/Pelvis: COMMON NORMALS: no CVA tenderness, thoracic and lumbar spine normal to inspection, no thoracic nor lumbar tenderness, thoraco-lumbar ROM normal and straight leg raise negative bilaterally THORACIC SPINE/UPPER BACK: No thoracic spinal tenderness LUMBAR SPINE/LOWER BACK: Yes normal to inspection, Yes lumbar ROM normal, No pain with ROM, No lumbar spinal tenderness and No paraspinal muscle tenderness PELVIS: Yes buttocks normal and No sciatic notch tenderness SACROILIAC JOINTS: Yes SI joints normal SACRUM: n o tenderness COCCYX: no tenderness BACK IMAGE (FEMALE): 1. TTP; lidocaine/biofreeze patch on; feels like area is spasming Extremity: COMMON NORMALS: normal to inspection, full ROM, capillary refill normal, no joint enlargement, no clubbing, cyanosis or edema and no calf tenderness GENERAL: Yes normal exam except as noted Neuro: COMMON NORMALS: patient oriented x3, moves all extremities, no focal motor deficits, no sensory deficits noted and gait normal S ENSORIUM/ORIENTATION: Yes alert, Yes oriented to person, Yes oriented to place and Yes oriented to time Skin: COMMON NORMALS: no rashes or lesions noted and no wounds GENERAL SKIN EXAM: no rashes or lesions noted Course 2 Vital Signs: Vital signs: Vital Signs Temperature 98.0 F 11/23/24 12:53 Pulse Rate 68 11/23/24 12:53 Blood Pressure 158/86 11/23/24 12:53 Pulse Oximetry 96 11/23/24 12:53 Oxygen Delivery Me thod Room Air 11/23/24 12:53 MDM - Back Pain/Injury Medical Decision Making Patient here with a complaint of pain to her right upper back that she states is sharp and spasm-like. Patient's vital signs are unremarkable. Her workup today is nonactionable. She was incidentally found to have elevated liver enzymes as well as an elevated lipase. She has a normal t. bili. Patient has absolutely no abdominal tenderness. She states these have been elevated previously. Recommend these get rechecked by primary care. Remainder of her emergency evaluation is unremarkable. CXR is normal. EKG nonconcerning. Patient does report feeling somewhat better after IM Toradol and Norflex. Will place her on anti-inflammatories and muscle relaxers at home. Recommend follow-up with primary care. Return to ED precautions discussed. Medical Records I reviewed the patient's medical records. Labs I reviewed the patient's lab results. 11/23/24 13:02 11/23/24 13:02 Radiology Impressions Chest X-Ray 11/23/24 12:49 IMPRESSION: No acute pathology or significant interval change given technique. Laboratory Results WBC 4.76 10^3/uL (3.29-11.43) 11/23/24 13:02 RBC 4.17 10^6/uL (3.85-5.65) 11/23/24 13:02 Hgb 13.30 g/dL (11.27-16.99) 11/23/24 13:02 Hct 39.7 % (36-47) 11/23/24 13:02 MCV 95.2 fl (85-98) 11/23/24 13:02 MCH 31.9 pg (27-33) 11/23/24 13:02 MCHC 33.5 g/dL (30-55) 11/23/24 13:02 RDW 12.1 % (12.1-15.1) 11/23/24 13:02 Plt Count 272 10^3/cmm (157-399) 11/23/24 13:02 MPV 8.9 fL (7.4-10.4) 11/23/24 13:02 Neut % (Auto) 36.1 % 11/23/24 13:02 Lymph % (Auto) 54.4 % 11/23/24 13:02 [place] % (Auto) 7.8 % 11/23/24 13:02 Eos % (Auto) 1.1 % 11/23/24 13:02 Baso % (Auto) 0.4 % 11/23/24 13:02 Neut # (Auto) 1.72 10^3/uL (1.8-7.7) L 11/23/24 13:02 Lymph # (Auto) 2.6 10^3/uL (0.8-4.8) 11/23/24 13:02 [place] # (Auto) 0.4 10^3/uL (0.2-0.9) 11/23/24 13:02 Eos # (Auto) 0.1 10^3/uL (0.0-0.8) 11/23/24 13:02 Baso # (Auto) 0.0 10^3/uL (0.0-0.1) 11/23/24 13:02 Nucleated RBC % (auto) 0 % 11/23/24 13:02 Nucleated RBCs # 0.0 /100WBC 11/23/24 13:02 PT 12.60 SECONDS (12.1-14.9) 11/23/24 13:02 INR 0.88 (0.8-1.2) 11/23/24 13:02 Sodium 139 mmol/L (136-145) 11/23/24 13:02 Potassium 4.9 mmol/L (3.5-5.1) 11/23/24 13:02 Chloride 107 mmol/L (98-107) 11/23/24 13:02 Carbon Dioxide 24 mmol/L (22-29) 11/23/24 13:02 Anion Gap 12.9 (5-19) 11/23/24 13:02 BUN 17 mg/dL (6-20) 11/23/24 13:02 Creatinine 0.6 mg/dL (0.5-0.9) 11/23/24 13:02 GFR Calculation 103.0 mL/min (90-130) 11/23/24 13:02 Glucose 95 mg/dL (65-115) 11/23/24 13:02 Calculated Osmolality 289 mOsm/kg (285-295) 11/23/24 13:02 Calcium 9.1 mg/dL (8.5-10.5) 11/23/24 13:02 Total Bilirubin 0.2 mg/dL (0.15-1.2) 11/23/24 13:02 AST 70 U/L (0-32) H 11/23/24 13:02 ALT 70 U/L (0-33) H 11/23/24 13:02 Alkaline Phosphatase 134 U/L (35-105) H 11/23/24 13:02 Troponin T Baseline < 6 ng/L (0-10) 11/23/24 13:02 Total Protein 6.6 g/dL (6.6-8.7) 11/23/24 13:02 Albumin 3.9 g/dL (3.5-5.2) 11/23/24 13:02 Globulin 2.7 g/dL (1.3-4.6) 11/23/24 13:02 Lipase 370 U/L (13-60) H 11/23/24 13:02 Urine Color Yellow (Yellow) 11/23/24 13:46 Urine Appearance Clear (CLEAR) 11/23/24 13:46 Urine pH 6.5 (5-7) 11/23/24 13:46 Ur Specific [place] 1.019 (1.005-1.030) 11/23/24 13:46 Urine Protein Negative (Negative) 11/23/24 13:46 Urine Glucose (UA) Negative (Normal) 11/23/24 13:46 Urine Ketones Negative (Negative) 11/23/24 13:46 Urine Blood Negative (Negative) 11/23/24 13:46 Urine Nitrate Negative (Negative) 11/23/24 13:46 Urine Bilirubin Negative (Negative) 11/23/24 13:46 Urine Urobilinogen 1.0 mg/dL (Negative) 11/23/24 13:46 Ur Leukocyte Esterase Trace (Negative) A 11/23/24 13:46 Urine RBC None /hpf (0-2) 11/23/24 13:46 Urine WBC 0-4 /hpf (0-5) H 11/23/24 13:46 Ur Squamous Epith Cells 0-4 /hpf (0-5) H 11/23/24 13:46 Amorphous Sediment Not Reportable 11/23/24 13:46 Urine Bacteria Trace /hpf (NONE) 11/23/24 13:46 All radiology interpretation(s) finalized by discharge Discharge Plan Discharge Patient Disposition: Home Clinical Impression: Upper back pain on right side Condition: Stable Prescriptions: New methocarbamol 500 mg tablet 1,000 mg PO Q8H Qty: 30 0RF diclofenac sodium 50 mg tablet,delayed release (DR/EC) 50 mg PO Q12H PRN (Reason: pain) Qty: 20 0RF Discontinued meloxicam 15 mg tablet 15 mg PO DAILY PRN (Reason: Pain) No Action diazepam 5 mg tablet 5 mg PO BEDTIME PRN (Reason: Anxiety) Keflex 500 mg Capsule 500 mg PO BID amlodipine 5 mg tablet 5 mg PO DAILY Qty: 30 0RF lisinopril 10 mg tablet 10 mg PO DAILY Qty: 30 0RF Discharge Orders: Discharge ED (Routine); Ordered 11/23/24 Ordered By: Sarah Hernandez Referrals: Taryn Barr [Primary Care Provider] - Activity Restrictions/Additional Instructions: As we discussed, your emergency workup today was unremarkable. We will place you on anti-inflammatories and muscle relaxers to see if this helps with your discomfort. You may continue topical therapies such as Biofreeze and lidocaine patches. You may also try ice and heat. As we discussed I would like you to follow-up with your primary care provider in the next 1 to 2 weeks. We did discuss incidental findings of elevated liver enzymes as well as an elevated lipase. You are not having any abdominal pain at this time thus CT imaging was not ordered. Again I would like you to follow-up with primary care so these labs could potentially be repeated. You need to return to the emergency department for onset of severe abdominal pain, repetitive episodes of vomiting, yellowing to your skin or eyes, worsening back pain, shortness of breath, chest pain, or any other concerns you may have. I hope you begin to feel better soon. Print Language: Cameroonian Coding Level of Care Code ED Aba Therapist for William Siddiqui
[2024-11-23 13:30] LABS: INR 0.88 (0.8-1.2)
[2024-11-23 13:33] LABS: Lipase 370 U/L (13-60)
[2024-11-23 13:55] LABS: Bilirubin Urine Negative (Negative); Blood Urine Negative (Negative); Glucose Urine UA Negative (Normal); Ketones Urine Negative (Negative); Leukocyte Esterase Urine Trace (Negative); Nitrate Urine Negative (Negative); Protein Urine Negative (Negative); Specific Gravity, Urine 1.019 (1.005-1.030); Urine Appearance Clear (CLEAR); Urine Color Yellow (Yellow); pH Urine 6.5 (5-7)
[2024-11-23 14:10] LABS: Add Urine Microscopic? YES; Bacteria Urine TRACE /hpf; Squamous Epithelial Cell Urine 0-4 /hpf (0-5); UA Manual Slide Review YES; UA Slide Review UA Slide Review Perf; WBC Urine 0-4 /hpf (0-5)
[2024-11-23] MEDS: orphenadrine 30 mg/mL Inj 2 mL 60 MG IM (14:11)
[2024-11-23] MEDS: ketorolac 60 mg/2 mL INJ IM (14:11)
[2024-11-23 15:01] VITALS: BP 121/69; PULSE 55; O2SAT 96
== END 2024-11-23 15:03 | disposition home or self-care (01) ==
PROVIDERS: Emergency Medicine; Emergency Provider Physician Assistant; PCP Registered Nurse
DX: M54.89 Other dorsalgia (principal)
CPT/HCPCS: 36415; 71045; 80053; 81001; 83690; 84484; 85025; 85610; 93005; 96372; 99285; J1885; J2360

== ENCOUNTER → 2024-12-16 07:58 | Outpatient (BNVA) | payer MEDICARE, MEDICAID, SELFPAY | PROVIDERS: PCP Registered Nurse; Visit Provider Podiatrist Foot & Ankle Surgery | DX: M79.672 Pain in left foot (principal); M21.611 Bunion of right foot; M21.612 Bunion of left foot; M20.42 Other hammer toe(s) (acquired), left foot | CPT/HCPCS: 73630; 99204 ==

== ENCOUNTER → 2024-12-28 08:48 | Outpatient (BNVA) | payer MEDICARE, MEDICAID, SELFPAY | PROVIDERS: PCP Registered Nurse; Visit Provider Podiatrist Foot & Ankle Surgery | DX: M20.12 Hallux valgus (acquired), left foot (principal); M20.42 Other hammer toe(s) (acquired), left foot | CPT/HCPCS: 99214 ==

== ENCOUNTER 2025-01-03 08:31 | Day surgery (SDC) | payer MEDICARE, MEDICAID, SELFPAY ==
[2025-01-03] VITALS (10 sets, daily range): BP systolic 123–160; BP diastolic 68–97; PULSE 54–74; RESP 12–19; TEMP 36.1–36.7; O2SAT 91–98; BMI 18.1
--- NOTE | 2025-01-03 09:14 | W.PM.OPSUD ---
Surgery/Procedure H&P Update DATE OF PROCEDURE: January 03, 2025 DATE H&P PERFORMED: 12/28/24 H&P UPDATE INFORMATION: I have reviewed H&P completed within last 30 days, I have examined patient prior to procedure, No changes to prior documentation, H&P is in [facility] EMR on date indicated and Risks and benefits of the procedure reviewed PREOP DIAGNOSIS: Left foot bunion and tailor's bunion PLANNED PROCEDURE: Operation Date: 01/03/25 10:10 Proposed Procedures p Ryan Bunionectomy(Left) - Chele Dubon DPM s Bunionectomy Ernie(Left) - TIGIST Marshall Left foot fifth digit derotational arthroplasty(Left) - Chele Dubon DPM
[2025-01-03] MEDS: sodium chloride 0.9% 1,000 ML 30 ML IV (09:21)
[2025-01-03] MEDS: CELEcoxib 200 mg Capsule 400 MG PO (09:21)
[2025-01-03] MEDS: gabapentin 300 mg Capsule PO (09:21)
--- NOTE | 2025-01-03 09:31 | ANES.PREANE2 ---
Pre-Anesthetic Assessment Height/Weight: Height 1.63 m Weight 48.081 kg Temp Pulse Resp BP Pulse Ox O2 Del Method 97.3 F L 54 L 18 149/80 98 Room Air 01/03/25 08:56 01/03/25 08:56 01/03/25 08:56 01/03/25 08:56 01/03/25 08:56 01/03/25 08:56 Preop Diagnosis: Left foot bunion and tailor's bunion Operation Date: 01/03/25 10:10 Proposed Procedures p Ryan Bunionectomy(Left) - Chele Dubon DPM s Bunionectomy Ernie(Left) - Chele Dubon DPM s Left foot fifth digit derotational arthroplasty(Left) - Chele Dubon DPM Last intake: Intake Last Liquid Date 01/02/25 Last Liquid Time 22:00 Last Solid Date 01/02/25 Last Solid Time 19:00 Social Tobacco and No alcohol Exam alert, oriented x 3, clear to auscultation bilaterally and regular rate & rhythm Airway Submandibular: within normal limits Cervical ROM: within normal limits Mallampati: Class I Pulmonary Chronic Obstructive Pulmonary Disease CV/HEM Hypertension Metabolic Thyroid Disease Anesthetic Plan ASA status: 2 Anesthesia: General Medications/Allergies Home Medications ?Medication ?Instructions ?Recorded ?Confirmed ?Last Taken ?Type amlodipine 5 mg tablet 5 mg PO DAILY #30 tabs 05/12/23 12/30/24 01/03/25 Rx lisinopril 10 mg tablet 10 mg PO DAILY #30 tabs 05/12/23 12/30/24 01/02/25 Rx crutches #1 ea 12/28/24 12/28/24 Unknown Rx Allergies Allergy/AdvReac Type Severity Reaction Status Date / Time No Known Allergies Allergy Verified 12/30/24 13:42 Current Medications Generic Name Dose Route Start Last Admin Trade Name Freq PRN Reason Stop Dose Admin Sodium Chloride 1,000 mls @ 30 mls/hr 01/03/25 07:30 01/03/25 09:21 Sodium Chloride 0.9% IV 01/04/25 07:29 30 mls/hr .Q24H MAMADOU Administration PFSH Anesthesia Medical History Post hysterectomy menopause Pneumonia Kidney stone Sepsis Surgical History Tubal ligation status Social History Smoking and tobacco/nicotine status: current every day tobacco/nicotine user Data Anesthesia Cardiac Studies: No Data to Display
[2025-01-03] MEDS: ceFAZolin 2,000 mg SDV 2000 MG IVP (09:37)
[2025-01-03] MEDS: BUPivacaine 0.5% INJ 30 mL INJECTION (10:12)
--- NOTE | 2025-01-03 11:26 | P.OP_ITS ---
Operative Report Date of procedure: January 03, 2025 Surgeon: Chele Dubon DPM Procedure: Date of procedure: 01/03/2025 Pre-op diagnosis: Left hallux valgus, left fifth digit hammertoe Post-op diagnosis: Same Post-op findings: Left foot hallux valgus, left foot fifth digit hammertoe Procedure done: 1. Left foot Ernie bunionectomy CPT 70610 2. Left foot fifth digit derotational arthroplasty CPT 04051 Implants: 4.0 and 3.5 mm headless compression screw from [employer] Specimens removed: None Surgeon: Dr. Chele Dubon DPM Mill Labor Supervisor: Lucho Estimated blood loss: 5 cc Tourniquet time: 58 minutes Complications: None Patient is a 59-year-old female that has a history of left foot hallux valgus deformity and fifth digit hammertoe. The patient has had the aforementioned chief complaint for some time. Conservative treatment measures have been attempted and the patient has opted for surgical intervention at this time. A lengthy discussion regarding the procedure, including risks and complications has been had with the patient and is noted in the recent clinic note. Written and verbal consent have been obtained. All patient questions have been answered to the patient?s satisfaction. No written or verbal guarantees have been given or implied. The patient has been NPO since midnight. The history has been reviewed and the history and physical is current. The signed consent was confirmed and placed in the patient chart. Patient imaging has been reviewed and is consistent with the diagnosis. Under mild sedation, the patient was brought into the operating room and placed on the table in the supine position. IV antibiotics were given by the anesthesia team as preoperative surgical prophylaxis. General sedation was then performed by the anesthesiateam. A local field block was performed using 0.5% Marcaine plain. A pneumatic tourniquet was then placed about the left thigh. The operative extremity was then prepped and draped in the usual fashion. The extremity was then elevated and exsanguinated before the tourniquet was inflated to 325 mmHg. After inflation, the following procedure was then performed. Attention was directed to the left foot where a prominent hallux valgus deformity was noted. 2 guidewires were driven from proximal medial to distal lateral through the first metatarsal. Good positioning of the wires was noted on C-arm imaging. Next a 15 blade was used to make a stab incision at the metatarsal neck of the first metatarsal. Dissection was carried out to release soft tissue attachments on dorsal and plantar aspect of first metatarsal. Next a Ivana bur was inserted into the incision and a transverse osteotomy through the first metatarsal neck was performed. The capital fragment was then translated into the lateral position in the transverse plane to reduce the 1?2 intermetatarsal angle. The capital fragment was rotated to realign sesamoids to appropriate anatomic position. The guidewires were then driven into the capital fragment of the first metatarsal head. A drill was then used to drill over the wires after a stab incision was made at the insertion of the wires in the skin. After drilling, a 4.0 headless compression screw was placed over the proximal wire followed by a 3.5 mm headless compression screw over the distal screw. Good positioning of the orthopedic hardware was visualized clinically as well as on C-arm imaging. The wires were removed from the foot. Attention was then directed to the left foot fifth digit. An elliptical incision was made overlying the proximal interphalangeal joint using a #15 blade. Dissection was carried down to the level of the extensor tendon which was transected transversely. The head of the proximal phalanx was exposed. A sagittal bone saw was then used to remove the capital fragment of the proximal phalanx. It was then passed from the operative field. The site was then irrigated with copious amounts of sterile saline. Extensor tendon was reapproximated using 4-0 Vicryl and skin was closed with 4-0 nylon. Remaining incisions were also closed with 4-0 nylon. Tourniquet was let down and good hyperemic response was noted of all digits of the left foot. Incision sites were dressed with Xeroform, 4 x 4 gauze, Kerlix, Newton bandage. Patient was placed in a cam boot. The patient tolerated the procedure and anesthesia well and without complication. The patient was transported from the operating room to the recovery room with vital signs stable and vascular status intact to all digits of the left foot. The patient was given both written and verbal instructions to remain weightbearing as tolerated in cam boot to the operative extremity, to keep dressings/splint clean, dry and intact and to take pain medication as directed. The patient will follow-up in the outpatient setting at their scheduled appointment. The patient was discharged with my personal number and was instructed to call if any questions or issues should arise. They were discharged home once anesthesia criteria was met.
--- NOTE | 2025-01-03 13:17 | P.ANESPOST_ITS ---
Inpatient post-anesthesia follow up: Vital signs: Temperature 98.0 F Pulse Rate 58 Respiratory Rate 16 Blood Pressure 123/68 Pulse Oximetry 91 Oxygen Delivery Me thod Room Air Oxygen Flow Rate Fraction of Inspir ed Oxygen Hydration adequate: Yes Nausea and vomiting: No Pain level: Con trolled Mental status: Baseline
== END 2025-01-03 12:38 | disposition home or self-care (01) ==
PROVIDERS: PCP Registered Nurse; Visit Provider Podiatrist Foot & Ankle Surgery
PROC: (CPT 28296; 2025-01-03 10:00)
PROC: (CPT 28296; 2025-01-03 10:00)
DX: M20.12 Hallux valgus (acquired), left foot (principal); Z79.899 Other long term (current) drug therapy; M20.42 Other hammer toe(s) (acquired), left foot; I10 Essential (primary) hypertension; E07.9 Disorder of thyroid, unspecified; F17.200 Nicotine dependence, unspecified, uncomplicated; J44.9 Chronic obstructive pulmonary disease, unspecified
CPT/HCPCS: 28296; 28285; 73630; 76000; C1713 ×2; J0690; J1100; J2003; J2250; J2371; J2405; J2704; J3010; J3490; J7030; J9999

== ENCOUNTER 2025-01-11 10:08 | Inpatient (IN) | payer MEDICARE, MEDICAID, SELFPAY ==
[2025-01-11] VITALS (12 sets, daily range): BP systolic 109–216; BP diastolic 60–114; PULSE 53–82; RESP 11–21; TEMP 36.6–37; O2SAT 94–99; BMI 18.1
--- NOTE | 2025-01-11 10:22 | ED.C_ITS ---
Documented by User: [email or web address] Burt 01/11/25 13:20 HPI - Psych 2 General: Chief Complaint: Psychiatric Symptoms Stated Complaint: SI, HTN Time Seen by Provider: 01/11/25 10:20 Source: patient Mode of arrival: ambulatory Limitations: no limitations History of Present Illness: Patient is a 59-year-old female presents to the ED today after she was evaluated at the crisis center and sent here with an affidavit. According to the affidavit, patient endorsed overwhelming distress due to the passing of her son 6 years ago. She reportedly had thoughts of suicide with a plan of stepping out in front of a train or turning on the gas in their camper with the intent to kill herself. History of suicide attempt by hanging 6 years ago. Patient continually states that she does not want to be here in the emergency department. She states that she was simply trying to get help and counseling at the crisis center and is upset that she was sent here. Patient states that she has not taken her medication for depression in 3 months; patient is unsure which medication this was. MD complaint: suicidal ideation and feels depressed History of same: Yes Relieving factors: medication Associated symptoms: Reports depression; Deny auditory hallucinations, visual hallucinations, homicidal ideation or suicidal ideation Related Data Home Medications ?Medication ?Instructions ?Recorded ?Confirmed ondansetron HCl 8 mg tablet 8 mg PO BID 01/11/2501/11 Previous Rx's ?Medication ?Instructions ?Recorded crutches #1 ea 12/28/24 hydrocodone 5 mg-acetaminophen 325 1 tab PO Q6H PRN pa in #28 tabs 01/03/25 mg tablet Allergies Allergy/AdvReac Type Severity Reaction Status Date / Time No Known Allergies Allergy Verified 12/30/24 13:42 Review of Systems 2 Card: Denies: chest pain Resp: Denies: dyspnea GI: Denies: abdominal pain Neuro: Denies: headache(s) Psych: Reports: anxiety and depression; Denies: visual hallucinations, auditory hallucinations, suicidal ideation or homicidal ideation PFS ED 2 PFSH: Medical History Post hysterectomy menopause Pneumonia Kidney stone Sepsis Surgical History Tubal ligation status Social History (Reviewed 01/11/25 @ 13:20 by OLVIN Burt Smoking and tobacco/nicotine status: current every day tobacco/nicotine user Physical Exam 2 Const: COMMON NORMALS: no acute distress, average body habitus, patient oriented x3, no limitations, healthy appearing, alert and well nourished G ENERAL APPEARANCE: cooperative OTHER: reports chronic HTN Resp: COMMON NORMALS: normal respiratory effort and clear to auscultation bilaterally AUSCULTATION: clear to auscultation bilaterally Cardio: COMMON NORMALS: regular rate and regular rhythm RATE: regular rate RHYTHM: regular rhythm Neuro: COMMON NORMALS: patient oriented x3 SENSORIUM/ORIENTATION: Yes alert Psych: COMMON NORMALS: mental status grossly normal, Normal thought process present, cooperative, normal affect, speech normal, activity/motor behavior normal, denies hallucinations, denies homicidal ideation and denies suicidal ideation APPEARANCE: Yes grossly normal ATTITUDE: Yes calm A CTIVITY/MOTOR BEHAVIOR: Yes appropriate eye contact and No psychomotor agitation SPEECH: Yes normal speech MOOD & AFFECT: Yes euthymic mood THOUGHT PROCESS: Normal thought process present THOUGHT CONTENT: Yes Normal thought content present MEMORY/COGNITION: Yes memory grossly intact and Yes cognition grossly intact INSIGHT: Good insight present (Psych) JUDGEMENT: Good judgement present (Psych) Course 2 Consultations: Consultation #1: Dr. Cole-accepts to NPU Vital Signs: Vital signs: Vital Signs Temperature 98.6 F 01/11/25 15:07 Pulse Rate 82 01/11/25 15:07 Respiratory Rate 16 01/11/25 15:07 Blood Pressure 156/98 01/11/25 15:07 Pulse Oximetry 96 01/11/25 15:07 Oxygen Delivery Me thod Room Air 01/11/25 15:07 [facility] - Psych Medical Decision Making Patient here after she was sent from crisis with an affidavit due to suicidal statements she made while there. I spoken to Dr. Cole who accepts to NPU. Medical Records I reviewed the patient's medical records. Lab Data I reviewed the patient's lab results. 01/11/25 11:04 01/11/25 11:04 Laboratory Results WBC 6.01 10^3/uL (3.29-11.43) 01/11/25 11:04 RBC 4.51 10^6/uL (3.85-5.65) 01/11/25 11:04 Hgb 14.20 g/dL (11.27-16.99) 01/11/25 11:04 Hct 42.6 % (36-47) 01/11/25 11:04 MCV 94.5 fl (85-98) 01/11/25 11:04 MCH 31.5 pg (27-33) 01/11/25 11:04 MCHC 33.3 g/dL (30-55) 01/11/25 11:04 RDW 12.7 % (12.1-15.1) 01/11/25 11:04 Plt Count 257 10^3/cmm (157-399) 01/11/25 11:04 MPV 9.2 fL (7.4-10.4) 01/11/25 11:04 Neut % (Auto) 41.3 % 01/11/25 11:04 Lymph % (Auto) 48.3 % 01/11/25 11:04 Davie % (Auto) 8.7 % 01/11/25 11:04 Eos % (Auto) 0.8 % 01/11/25 11:04 Baso % (Auto) 0.7 % 01/11/25 11:04 Neut # (Auto) 2.49 10^3/uL (1.8-7.7) 01/11/25 11:04 Lymph # (Auto) 2.9 10^3/uL (0.8-4.8) 01/11/25 11:04 Davie # (Auto) 0.5 10^3/uL (0.2-0.9) 01/11/25 11:04 Eos # (Auto) 0.1 10^3/uL (0.0-0.8) 01/11/25 11:04 Baso # (Auto) 0.0 10^3/uL (0.0-0.1) 01/11/25 11:04 Nucleated RBC % (auto) 0 % 01/11/25 11:04 Nucleated RBCs # 0.0 /100WBC 01/11/25 11:04 Sodium 139 mmol/L (136-145) 01/11/25 11:04 Potassium 4.2 mmol/L (3.5-5.1) 01/11/25 11:04 Chloride 104 mmol/L (98-107) 01/11/25 11:04 Carbon Dioxide 23 mmol/L (22-29) 01/11/25 11:04 Anion Gap 16.2 (5-19) 01/11/25 11:04 BUN 15 mg/dL (6-20) 01/11/25 11:04 Creatinine 0.4 mg/dL (0.5-0.9) L 01/11/25 11:04 GFR Calculation 164.5 mL/min (90-130) H 01/11/25 11:04 Glucose 92 mg/dL (65-115) 01/11/25 11:04 Calculated Osmolality 288 mOsm/kg (285-295) 01/11/25 11:04 Calcium 9.1 mg/dL (8.5-10.5) 01/11/25 11:04 Total Bilirubin 0.9 mg/dL (0.15-1.2) 01/11/25 11:04 AST 68 U/L (0-32) H 01/11/25 11:04 ALT 65 U/L (0-33) H 01/11/25 11:04 Alkaline Phosphatase 111 U/L (35-105) H 01/11/25 11:04 Total Protein 7.9 g/dL (6.6-8.7) 01/11/25 11:04 Albumin 4.3 g/dL (3.5-5.2) 01/11/25 11:04 Globulin 3.6 g/dL (1.3-4.6) 01/11/25 11:04 Salicylates < 0.3 mg/dL (3-10) L 01/11/25 11:04 Acetaminophen < 5.0 ug/mL (10-30) L 01/11/25 11:04 Ethyl Alcohol < 10 mg/dL (0-10) 01/11/25 11:04 No radiology studies performed this visit Discharge Plan Discharge Patient Disposition: Admitted As Inpatient Admit Provider: Cameron Cole Clinical Impression: Depression Condition: Stable Coding Level of Care Code ED Tank Truck Operator for Chg Fwd Documented by User: Ruy Fitzgerald DO 01/11/25 15:45 HPI - Psych 2 General: Chief Complaint: Psychiatric Symptoms Stated Complaint: SI, HTN Time Seen by Provider: 01/11/25 10:20 Related Data Home Medications ?Medication ?Instructions ?Recorded ?Confirmed ondansetron HCl 8 mg tablet 8 mg PO BID 01/11/2501/11 Previous Rx's ?Medication ?Instructions ?Recorded crutches #1 ea 12/28/24 hydrocodone 5 mg-acetaminophen 325 1 tab PO Q6H PRN pa in #28 tabs 01/03/25 mg tablet Allergies Allergy/AdvReac Type Severity Reaction Status Date / Time No Known Allergies Allergy Verified 12/30/24 13:42 PFSH ED 2 PFSH: Medical History Post hysterectomy menopause Pneumonia Kidney stone Sepsis Surgical History Tubal ligation status Social History Smoking and tobacco/nicotine status: current every day tobacco/nicotine user Course 2 Vital Signs: Vital signs: Vital Signs Temperature 98.6 F 01/11/25 15:07 Pulse Rate 82 01/11/25 15:07 Respiratory Rate 16 01/11/25 15:07 Blood Pressure 156/98 01/11/25 15:07 Pulse Oximetry 96 01/11/25 15:07 Oxygen Delivery Me thod Room Air 01/11/25 15:07 MDM - Psych Medical Decision Making Patient here after she was sent from crisis with an affidavit due to suicidal statements she made while there. I spoken to Dr. Cole who accepts to NPU. Chart reviewed and patient discussed with midlevel. Agree with assessment and plan. Lab Data 01/11/25 11:04 01/11/25 11:04 Laboratory Results WBC 6.01 10^3/uL (3.29-11.43) 01/11/25 11:04 RBC 4.51 10^6/uL (3.85-5.65) 01/11/25 11:04 Hgb 14.20 g/dL (11.27-16.99) 01/11/25 11:04 Hct 42.6 % (36-47) 01/11/25 11:04 MCV 94.5 fl (85-98) 01/11/25 11:04 MCH 31.5 pg (27-33) 01/11/25 11:04 MCHC 33.3 g/dL (30-55) 01/11/25 11:04 RDW 12.7 % (12.1-15.1) 01/11/25 11:04 Plt Count 257 10^3/cmm (157-399) 01/11/25 11:04 MPV 9.2 fL (7.4-10.4) 01/11/25 11:04 Neut % (Auto) 41.3 % 01/11/25 11:04 Lymph % (Auto) 48.3 % 01/11/25 11:04 Davie % (Auto) 8.7 % 01/11/25 11:04 Eos % (Auto) 0.8 % 01/11/25 11:04 Baso % (Auto) 0.7 % 01/11/25 11:04 Neut # (Auto) 2.49 10^3/uL (1.8-7.7) 01/11/25 11:04 Lymph # (Auto) 2.9 10^3/uL (0.8-4.8) 01/11/25 11:04 Davie # (Auto) 0.5 10^3/uL (0.2-0.9) 01/11/25 11:04 Eos # (Auto) 0.1 10^3/uL (0.0-0.8) 01/11/25 11:04 Baso # (Auto) 0.0 10^3/uL (0.0-0.1) 01/11/25 11:04 Nucleated RBC % (auto) 0 % 01/11/25 11:04 Nucleated RBCs # 0.0 /100WBC 01/11/25 11:04 Sodium 139 mmol/L (136-145) 01/11/25 11:04 Potassium 4.2 mmol/L (3.5-5.1) 01/11/25 11:04 Chloride 104 mmol/L (98-107) 01/11/25 11:04 Carbon Dioxide 23 mmol/L (22-29) 01/11/25 11:04 Anion Gap 16.2 (5-19) 01/11/25 11:04 BUN 15 mg/dL (6-20) 01/11/25 11:04 Creatinine 0.4 mg/dL (0.5-0.9) L 01/11/25 11:04 GFR Calculation 164.5 mL/min (90-130) H 01/11/25 11:04 Glucose 92 mg/dL (65-115) 01/11/25 11:04 Calculated Osmolality 288 mOsm/kg (285-295) 01/11/25 11:04 Calcium 9.1 mg/dL (8.5-10.5) 01/11/25 11:04 Total Bilirubin 0.9 mg/dL (0.15-1.2) 01/11/25 11:04 AST 68 U/L (0-32) H 01/11/25 11:04 ALT 65 U/L (0-33) H 01/11/25 11:04 Alkaline Phosphatase 111 U/L (35-105) H 01/11/25 11:04 Total Protein 7.9 g/dL (6.6-8.7) 01/11/25 11:04 Albumin 4.3 g/dL (3.5-5.2) 01/11/25 11:04 Globulin 3.6 g/dL (1.3-4.6) 01/11/25 11:04 Salicylates < 0.3 mg/dL (3-10) L 01/11/25 11:04 Acetaminophen < 5.0 ug/mL (10-30) L 01/11/25 11:04 Ethyl Alcohol < 10 mg/dL (0-10) 01/11/25 11:04 Discharge Plan Discharge Patient Disposition: Admitted As Inpatient Admit Provider: Cameron Cole Clinical Impression: Depression Condition: Stable Coding Level of Care Code ED Tank Truck Operator for William Siddiqui
[2025-01-11 11:21] LABS: Basophils % 0.7 %; Eosinophils # 0.1 10^3/uL (0.0-0.8); Eosinophils % 0.8 %; Hematocrit 42.6 % (36-47); Lymphocytes # 2.9 10^3/uL (0.8-4.8); Lymphocytes % 48.3 %; Mean Corpuscular HGB Conc 33.3 g/dL (30-55); Mean Corpuscular Hemoglobin 31.5 pg (27-33); Mean Corpuscular Volume 94.5 fl (85-98); Mean Platelet Volume 9.2 fL (7.4-10.4); Monocytes # 0.5 10^3/uL (0.2-0.9); Monocytes % 8.7 %; Neutrophils # 2.49 10^3/uL (1.8-7.7); Neutrophils % 41.3 %; Nucleated Red Blood Cells % 0 %; Platelet Count 257 10^3/cmm (157-399); Red Blood Count 4.51 10^6/uL (3.85-5.65); Red Cell Distribution Width 12.7 % (12.1-15.1); White Blood Count 6.01 10^3/uL (3.29-11.43)
[2025-01-11 11:50] LABS: Alanine Aminotransferase 65 U/L (0-33); Albumin Level 4.3 g/dL (3.5-5.2); Alkaline Phosphatase 111 U/L (35-105); Anion Gap 16.2 (5-19); Aspartate Amino Transferase 68 U/L (0-32); Blood Urea Nitrogen 15 mg/dL (6-20); Calcium 9.1 mg/dL (8.5-10.5); Carbon Dioxide 23 mmol/L (22-29); Chloride 104 mmol/L (98-107); Creatinine Clr Calc Pharmacy 127.5103; Globulin 3.6 g/dL (1.3-4.6); Glomerular Filtration Rate 164.5 mL/min (90-130); Glucose 92 mg/dL (65-115); Osmolality Calculated 288 mOsm/kg (285-295); Potassium 4.2 mmol/L (3.5-5.1); Sodium 139 mmol/L (136-145); Total Bilirubin 0.9 mg/dL (0.15-1.2); Total Protein 7.9 g/dL (6.6-8.7)
[2025-01-11 11:52] LABS: Acetaminophen < 5.0 ug/mL (10-30); Alcohol Level < 10 mg/dL (0-10); Salicylate < 0.3 mg/dL (3-10)
[2025-01-11] MEDS: amlodipine 5 mg Tablet PO (11:53)
[2025-01-11] MEDS: LORazepam 1 mg Tablet PO (11:53)
[2025-01-11] MEDS: lisinopril 10 mg Tablet PO (11:53)
--- NOTE | 2025-01-11 16:08 | PC.NURSE ---
1:1 Patient has 1:1 for boot on left foot and GILBERTO bandage. Patient reports that she had her great toe and small toe broken by a doctor on 01/03/25. Patient denies any pain at this time.
[2025-01-11] MEDS: acetaminophen 325 mg Tablet 650 MG PO (16:22)
[2025-01-11] MEDS: nicotine 2 mg Gum BUCCAL (17:45)
[2025-01-11] MEDS: hyDROXYzine 25 mg Capsule 50 MG PO (17:47)
[2025-01-11] MEDS: trazodone 50 mg Tablet PO (21:39)
[2025-01-12 06:00] VITALS: BP 113/57; PULSE 60; RESP 18; O2SAT 96
[2025-01-12] MEDS: nicotine 21 mg Patch 1 PATCH TRANSDERMA (07:57)
--- NOTE | 2025-01-12 13:01 | P.NPUHP_ITS ---
Providers/Chief Complaint 2 Admitting Physician: Cameron Cole MD Primary Care Provider: Taryn Barr Chief Complaint: SI, HTN HPI NPU History of Present Illness Zaria Sheehan is a 59 year old female who presented to the emergency department with the following report: Chief Complaint: Psychiatric Symptoms Stated Complaint: SI, HTN Time Seen by Provider: 01/11/25 10:20 Source: patient Mode of arrival: ambulatory Limitations: no limitations History of Present Illness: Patient is a 59-year-old female presents to the ED today after she was evaluated at the crisis center and sent here with an affidavit. According to the affidavit, patient endorsed overwhelming distress due to the passing of her son 6 years ago. She reportedly had thoughts of suicide with a plan of stepping out in front of a train or turning on the gas in their camper with the intent to kill herself. History of suicide attempt by hanging 6 years ago. Patient continually states that she does not want to be here in the emergency department. She states that she was simply trying to get help and counseling at the crisis center and is upset that she was sent here. Patient states that she has not taken her medication for depression in 3 months; patient is unsure which medication this was. MD complaint: suicidal ideation and feels depressed History of same: Yes Relieving factors: medication Associated symptoms: Reports depression; Deny auditory hallucinations, visual hallucinations, homicidal ideation or suicidal ideation She was admitted to the neuropsychiatric unit for definitive treatment of those issues. She is known to [facility] psychiatry through recent crisis engagement wherein she was quite emotional and endorsed issues consistent with lethality, but presented to the emergency department and to the unit denying she said anything that would raise any concern. We discussed the risks, benefits and alternatives of restarting her previous Lexapro and other medications and she understood and agreed to proceed as is documented in this note. She presented today reporting: Chief complaint Referred for evaluation due to concerns about grief-related depression and potential lethality following the loss ogdf a son five years ago. History of the present complaint The patient reports experiencing significant grief related to the loss of their son, which has been a persistent issue. They sought help at [facility] ([facility]) to discuss their grief, but comments made during the visit raised concerns about their safety, leading to a referral for further evaluation. The patient clarifies that the concerning comments were related to events that occurred five years ago, during a period of severe depression when they had thoughts of self-harm and even acted on those thoughts. However, they emphasize that they have not been hospitalized for psychiatric reasons and had not disclosed these thoughts to anyone at the time. The patient describes a transformative experience following a severe medical event involving a kidney stone that led to sepsis. During this time, they had a near- experience, which they describe as going to [facility] and seeing their son. This experience profoundly changed their perspective on life and provided some comfort regarding their son's passing. Despite this, the patient expresses a desire to talk about their son, as they feel others are tired of hearing about it. The patient has a history of depression and anxiety, which became more pronounced following the loss of their son. They report episodes of low mood, hopelessness, helplessness, and worthlessness. Although they have experienced passive wishes, they assert that they would not act on these thoughts. The patient began taking Lexapro for depression and anxiety within the last year but discontinued it three months ago. They express a desire to have someone to talk to about their ongoing symptoms and challenges. The patient has a long history of smoking, having started at age 15, and currently smokes about half a pack of cigarettes a day. They also report using marijuana since age 15, consuming approximately two joints a day, which they find relaxing. However, they express an intention to quit due to financial reasons. The patient denies any significant alcohol use, stating they drink very infrequently, and denies any history of substance abuse or legal issues related to drugs or alcohol. They have never received drug or alcohol treatment and have not been involved in any legal issues related to substance use. Mental health history Had a history of severe depression and suicidal thoughts, with an incident occurring six years ago where there was an attempt to act on these thoughts, though it did not lead to hospitalization. No prior psychiatric hospitalizations. Recently sought treatment for ongoing symptoms of depression and anxiety, starting Lexapro approximately six months ago, with the last dose taken three months ago. No previous engagement with outpatient mental health services or therapy until the recent attempt to seek help. No history of self- injurious behavior reported. Social history Currently smokes cigarettes, approximately half a pack per day, since age 15. Uses cannabis, approximately two joints per day, and plans to quit due to financial reasons. No alcohol use, with rare instances of drinking heavily every four or five years. No history of drug and alcohol treatment, DUI, DWI, or related charges. No use of other substances such as opiates, methamphetamine, mushrooms, or ecstasy. No mention of family, work, exercise, or diet. Meds NPU Home Medications ?Medication ?Instructions ?Recorded ?Confirmed ?Last Taken ?Type crutches #1 ea 12/28/24 01/11/25 Unkn own Rx hydrocodone 5 mg-acetaminophen 325 1 tab PO Q6H PRN pa in #28 tabs 01/03/25 01/11/25 Unknown Rx mg tablet ondansetron HCl 8 mg tablet 8 mg PO BID 01/11/2501/11 Unknown History Allergies Allergy/AdvReac Type Severity Reaction Status Date / Time No Known Allergies Allergy Verified 12/30/24 13:42 PFSH NPU 2 PFSH: Medical History Post hysterectomy menopause Pneumonia Kidney stone Sepsis Surgical History Tubal ligation status Social History Smoking and tobacco/nicotine status: current every day tobacco/nicotine user Mental Status Exam 2 MSE Comments: This is a slender but well-developed white female in hospital scrubs with adequate grooming and eye contact. No abnormal movements except for mild psychomotor agitation. Cooperative with exam and in mild distress. Speech was increased rate and normal volume. Mood described as somewhat irritated at being here, affect congruent. Thought process organized. Thought content: Patient denied suicidal or homicidal ideation, there were no delusions reported or noted, she denied any auditory or visual hallucinations. Patient has experienced depression, low mood, hopelessness, helplessness, and worthlessness since the loss of their son. They have had thoughts of suicide in the past and acted on them, but currently deny any intent or plan. Anxiety has been present, especially after the loss of their son. Grief regarding the loss of their son is a significant stressor. Attention and concentration were intact and memory appeared mostly reliable but at times unreliable likely purposefully but none were formally tested. She is alert and oriented x 3. Insight and judgment are limited and impulse control is limited. Vitals/I&O/Wt Last Vital Signs Temp 98.6 F 01/11/25 15:07 Pulse 60 01/12/25 06:00 Resp 18 01/12/25 06:00 BP 113/57 01/12/25 06:00 Pulse Ox 96 01/12/25 06:00 O2 Del Method Room Air 01/11/25 15:12 Weight last 48 hrs Weight 48.081 kg Data NPU 01/11/25 11:04 01/11/25 11:04 A&P Assessment and plan (1) Depression: Qualifiers: Active/Remission status: currently active Depression Type: major depressive disorder Major depression episode severity: unspecified Major depression recurrence: unspecified whether recurrent Qualified Code(s): F32.9 - Major depressive disorder, single episode, unspecified (2) Cannabis use disorder, moderate, dependence: (3) Bereavement: (4) Suicidal ideation: Plan This is a 59-year-old white female with limited mental health history and some active addiction issues who presents after recent engagement with [facility] where and concerns were raised about her safety for discharge. The patient is experiencing ongoing depression and anxiety, which have persisted since the loss of their son. There have been episodes of low mood, feelings of hopelessness, helplessness, and worthlessness, as well as passive wishes and a past instance of suicidal ideation. The patient recently sought treatment and began an antidepressant and anti-anxiety medication last year due to these symptoms. The patient is seeking someone to talk to for continued support in managing these mental health challenges. 1. Restart Lexapro 10 mg p.o. daily. Also restart other medications like thyroid medication. 2. Continue one-to-one given boot. 3. Encourage individual, group and milieu therapy. 4. Encourage sober living treatment after discharge at the highest level of care to which she is willing to commit. 5. Monitor against the backdrop of 96-hour hold. 6. Obtain collateral information. 7. Will consider discharge tomorrow. PDMP PDMP Reviewed: Not Reviewed Involuntary Hold Information 2 Hold Status: Legal Status: 96 Hour Hold Date/Time Hold Expires: 01/17/25 @ 14:19 Attestations NPU 2 Medical Necessity Statement*: Inpatient hospitalization is medically necessary and the clinically appropriate intervention at this time. We will monitor/initiate medications and make changes as indicated. She will be in the hospital over 2 midnights. Likely length of stay 1 to 3 days. Coding Level of Care Code Acute Code for g Fwd Diagnoses Depression F32.9 Active/Remission status: currently active Depression Type: major depressive disorder Major depression episode severity: unspecified Major depression recurrence: unspecified whether recurrent Cannabis use disorder, moderate, dependence F12.20 Bereavement Z63.4 Suicidal ideation R45.853
[2025-01-12 14:00] VITALS: BP 101/63; PULSE 85; RESP 16; TEMP 36.6; O2SAT 96
--- NOTE | 2025-01-12 15:20 | PC.NURSE ---
Son (Flip) phone number is [phone]
[2025-01-12 19:39] VITALS: BP 106/61; PULSE 94; RESP 18; TEMP 36.5; O2SAT 95
[2025-01-12] MEDS: hyDROXYzine 25 mg Capsule 50 MG PO (20:20)
[2025-01-12] MEDS: trazodone 50 mg Tablet PO (20:20)
[2025-01-12] MEDS: acetaminophen 325 mg Tablet 650 MG PO (20:20)
[2025-01-13] MEDS: ondansetron 4 MG Tablet PO (00:31)
[2025-01-13 06:00] VITALS: BP 106/66; PULSE 77; RESP 18; O2SAT 96
--- NOTE | 2025-01-13 09:59 | PC.NURSE ---
Pt states that her sleeping was off and on last night. She denies anxiety and depression. No reports of Si/HI. and denies hallucinations. No pain reported. States that she had a BM 2 days ago and that is her normal. Pt states that she had surgery on a Lt great toe (bunion removed) and a knuckle removed from small toe on same foot on 01/03/[address] Dubon. She states that her post op instructions were to leave the bandage in place and Dr. Dubon would perform the first dressing change on 01/14/25 at her f/u appt. Her cam boot was also to stay in place. manufacturing shift supervisor RN Siria stated that pt removed her dressing last night and she visualized the surgical incision and wrapped it back up. This nurse called Dr. Dubon's office and they are going to fax over the order for the Cam Boot and the postop surgical incison dressing instructions.
--- NOTE | 2025-01-13 11:21 | PC.NURSE ---
Cam Boot and Dressing Change Spoke with Nurse at Dr. Dubon office and orders for cam boot and dressing were faxed over. Pt had surgery on Lt great toe and Lt 5th digit. A dressing was placed in surgery and pt was given post op instructions to leave this dressing in place until 01/17/251514 when she f/u with Dr. Dubon and he replaces it at that time. Siria RN, data governance consultant, reported that dressing was removed last night by pt as well as the cam boot. Nurse states that dressing was put back in place with boot. Orders from Dr. Dubon state that pt is non weight bearing to LLE with cam boot until further instructed.
--- NOTE | 2025-01-13 13:37 | PC.NURSE ---
NEW ORDERS RECEIVED FOR PT PRIVILEGE OF USING WALKER DUE TO BEING NON WEIGHT BEARING ON LEFT LOWER EXTREMITY. PT WAS GIVEN EDUCATION ON USING THE WALKER WITH DEMONSTRATION OF USE. VERBALIZED UNDERSTANDING. SUPPORT VOICED.
--- NOTE | 2025-01-13 13:51 | PC.NURSE ---
Dr. Cole asked that pt confirm her 3 home medications. Pt stated that she takes Lexapro, a thyroid med, and a BP med. Called to [facility] and verified. These have been updated in the system for Dr. Cole.
--- NOTE | 2025-01-13 14:36 | DCPLANNER ---
Pt informed and Imm was given to pt and rights explained.
--- NOTE | 2025-01-13 15:19 | W.PM.NPUDCS ---
Diagnoses at Discharge Discharge Diagnosis (1) Depression: Status: Acute Qualifiers: Active/Remission status: currently active Depression Type: major depressive disorder Major depression episode severity: unspecified Major depression recurrence: unspecified whether recurrent Qualified Code(s): F32.9 - Major depressive disorder, single episode, unspecified (2) Cannabis use disorder, moderate, dependence: Status: Acute (3) Bereavement: Status: Acute (4) Suicidal ideation: Status: Acute Reason for Visit Reason for Visit: SI, HTN Involuntary Hold Information Hold Status: Legal Status: 96 Hour Hold Date/Time Hold Expires: 01/17/25 @ 14:19 Discharge Data Studies Completed and Pending: Pending at discharge Category Date Time Status Drug Screen, Urin e Stat Lab 01/11/25 10:20 Uncollected Laboratory Results WBC 6.01 10^3/uL (3.2 9-11.43) 01/11/25 11:04 RBC 4.51 10^6/uL (3.8 5-5.65) 01/11/25 11:04 Hgb 14.20 g/dL (11.27 -16.99) 01/11/25 11:04 Hct 42.6 % (36-47) 01/11/25 11:04 MCV 94.5 fl (85-98) 01/11/25 11:04 MCH 31.5 pg (27-33) 01/11/25 11:04 MCHC 33.3 g/dL (30-55) 01/11/25 11:04 RDW 12.7 % (12.1-15.1 ) 01/11/25 11:04 Plt Count 257 10^3/cmm (157 -399) 01/11/25 11:04 MPV 9.2 fL (7.4-10.4) 01/11/25 11:04 Neut % (Auto) 41.3 % 01/11/25 11:04 Lymph % (Auto) 48.3 % 01/11/25 11:04 Cassia % (Auto) 8.7 % 01/11/25 11:04 Eos % (Auto) 0.8 % 01/11/25 11:04 Baso % (Auto) 0.7 % 01/11/25 11:04 Neut # (Auto) 2.49 10^3/uL (1.8 -7.7) 01/11/25 11:04 Lymph # (Auto) 2.9 10^3/uL (0.8- 4.8) 01/11/25 11:04 Cassia # (Auto) 0.5 10^3/uL (0.2- 0.9) 01/11/25 11:04 Eos # (Auto) 0.1 10^3/uL (0.0- 0.8) 01/11/25 11:04 Baso # (Auto) 0.0 10^3/uL (0.0- 0.1) 01/11/25 11:04 Nucleated RBC % (a uto) 0 % 01/11/25 11:04 Nucleated RBCs # 0.0 /100WBC 01/11/25 11:04 Sodium 139 mmol/L (136-1 45) 01/11/25 11:04 Potassium 4.2 mmol/L (3.5-5 .1) 01/11/25 11:04 Chloride 104 mmol/L (98-10 7) 01/11/25 11:04 Carbon Dioxide 23 mmol/L (22-29) 01/11/25 11:04 Anion Gap 16.2 (5-19) 01/11/25 11:04 BUN 15 mg/dL (6-20) 01/11/25 11:04 Creatinine 0.4 mg/dL (0.5-0. 9) L 01/11/25 11:04 GFR Calculation 164.5 mL/min (90- 130) H 01/11/25 11:04 Glucose 92 mg/dL (65-115) 01/11/25 11:04 Calculated Osmolal ity 288 mOsm/kg (285- 295) 01/11/25 11:04 Calcium 9.1 mg/dL (8.5-10 .5) 01/11/25 11:04 Total Bilirubin 0.9 mg/dL (0.15-1 .2) 01/11/25 11:04 AST 68 U/L (0-32) H 01/11/25 11:04 ALT 65 U/L (0-33) H 01/11/25 11:04 Alkaline Phosphata se 111 U/L (35-105) H 01/11/25 11:04 Total Protein 7.9 g/dL (6.6-8.7 ) 01/11/25 11:04 Albumin 4.3 g/dL (3.5-5.2 ) 01/11/25 11:04 Globulin 3.6 g/dL (1.3-4.6 ) 01/11/25 11:04 TSH 9.70 uIU/mL (0.27 -4.20) H 01/12/25 11:04 Salicylates < 0.3 mg/dL (3-10 ) L 01/11/25 11:04 Acetaminophen < 5.0 ug/mL (10-3 0) L 01/11/25 11:04 Ethyl Alcohol < 10 mg/dL (0-10) 01/11/25 11:04 Vitals: Last Vital Signs Temp 97.7 F 01/12/25 19:39 Pulse 77 01/13/25 06:00 Resp 18 01/13/25 06:00 BP 106/66 01/13/25 06:00 Pulse Ox 96 01/13/25 06:00 O2 Del Method Room Air 01/13/25 06:00 Discharge Plan Discharge Patient Disposition: Home Condition: Stable Prescriptions: Continued lisinopril 20 mg tablet 20 mg PO DAILY 30 Days Qty: 30 1RF escitalopram oxalate 10 mg tablet 10 mg PO DAILY 30 Days Qty: 30 1RF thyroid (pork) [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 Dubon 01/17/25 Discharge Orders: Discharge Order (Routine); Ordered 01/13/25 Ordered By: Cameron Cole Referrals: [facility] [Other] - 02/02/25 10:00 am (The [facility] group provides a safe, compassionate and supportive environment for exploring grief. lt is open to everyone in the community who has experienced a loss, This is a free service provided by [facility], [facility]. For more information contact: [facility], Hospice at [phone]) Chele Dubon DPM [Physician] - 01/17/25 3:15 pm (Follow up) Geni Schulte DO [Referring] - 01/18/25 10:00 am (Appointment is scheduled with Mack Waterman NP.) Discharge Diet: Regular Discharge Activity: Resume usual activity Patient Instructions: Opioid Safety Coding Level of Care Code Acute Code for Chg Fwd Diagnoses Depression F32.9 Active/Remission status: currently active Depression Type: major depressive disorder Major depression episode severity: unspecified Major depression recurrence: unspecified whether recurrent Cannabis use disorder, moderate, dependence F12.20 Bereavement Z63.4 Suicidal ideation R45.857
[2025-01-13] MEDS: escitalopram 10 mg Tablet PO (15:22)
[2025-01-13 15:25] VITALS: BP 106/66; PULSE 77; RESP 18; O2SAT 96
== END 2025-01-13 15:37 | disposition home or self-care (01) | DRG 881 ==
LOC: ER 14:18 → NP 14:30
PROVIDERS: Admitting Provider Psychiatry & Neurology Psychiatry; Emergency Provider Physician Assistant; PCP Registered Nurse; Visit Provider Psychiatry & Neurology Psychiatry
DX: F32.9 Major depressive disorder, single episode, unspecified (principal); R45.851 Suicidal ideations; F12.20 Cannabis dependence, uncomplicated; Z63.4 Disappearance and death of family member; Z91.51 Personal history of suicidal behavior; Z87.01 Personal history of pneumonia (recurrent); Z78.0 Asymptomatic menopausal state; F17.210 Nicotine dependence, cigarettes, uncomplicated; F41.9 Anxiety disorder, unspecified
CPT/HCPCS: 36415; 80053; 80307; 84443; 85025; 97165; 99285; J9999; Q0162

== ENCOUNTER → 2025-01-17 15:06 | Outpatient (BNVA) | payer MEDICARE, MEDICAID, SELFPAY | PROVIDERS: PCP Registered Nurse; Visit Provider Podiatrist Foot & Ankle Surgery | DX: M20.12 Hallux valgus (acquired), left foot (principal); M79.672 Pain in left foot; M20.42 Other hammer toe(s) (acquired), left foot | CPT/HCPCS: 73630; 99024 ==

== ENCOUNTER → 2025-01-31 13:15 | Outpatient (BNVA) | payer MEDICARE, MEDICAID, SELFPAY | PROVIDERS: PCP Registered Nurse; Visit Provider Podiatrist Foot & Ankle Surgery | DX: M79.672 Pain in left foot (principal) | CPT/HCPCS: 73630 ==

== ENCOUNTER 2025-05-30 08:56 | Emergency (ER) | payer MEDICARE, MEDICAID, SELFPAY ==
--- OUTSIDE RECORDS SUMMARY | 2025-05-30 09:04 | XMS_ITS | Encounter Summary ---
Author Organization [facility] Address [address] [place] [address] Care Team Providers Care Oncology Social Work Name Role Phone Geni Schulte DO Primary Care Provider Reason for Visit * Reason Comments Medication Review Encounter Details Date Type Department Care Team (Late st Contact Info) Description 03/21/2025 Telephone [facility] [place] [address] [place] [address] Geni Schulte DO [address] [place] [address] Medication Review Social History Tobacco Use Types Packs/Day Years Used Date Smoking Tobacco: Some Days Cigarettes Passive Smoke Exposure: Current Smokeless Tobacco: Never Alcohol Use Standard Drinks/Week Comments Not Currently 0 (1 standard drink = 0.6 oz pur e alcohol) Financial Resource Strain Answer Date R ecorded How hard is it for you to pa y for the very basics like food, housing, medical care, and heating? Very hard 05/28/2022 Food Insecurity Answer Date Recorded In the past 12 months, have you worried that your food would run out before you had money to buy more? Sometimes true 2021 In the past 12 months, did y ou run out of food and didn't have money to buy more? Sometimes true 05/28/2022 Transportation Needs Answer Date Record ed In the past 12 months, has l ack of transportation kept you from medical appointments or from getting medications? Yes 05/28/2022 Lack of Transportation (Non-Medical) Not on file 05/28/2022 Comments No Sex and Gender Information Value Date Recorded Sex Assigned at Not on file Legal Sex Female 11:23 AM CDT Gender Identity Not on file Sexual Orientation Not on file documented as of this encounter Miscellaneous Notes * Telephone Encounter - Karla Silveira CMA - 03/24/2025 1:29 PM CDT I believe the records are in media-- scan date of 01/12/25--I cannot open them. She has not followed up here at our office since this hospitalization. * Telephone Encounter - Geni Schulte DO - 03/23/2025 9:28 PM CDT I need to see her records from this hospitalization before I send in anything. Also her psychiatrist should have given her something for this when she was discharged. * Telephone Encounter - Patty Ren - 03/21/2025 3:39 PM CDT Copied from [facility] #[id number]. Topic: Patient or Caregiver Communication Request >> Mar 21, 2025 3:37 PM Patty Arteaga wrote: Patient or Caregiver requesting advice Caller: Zaria Sheehan Patient/Caregiver Callback Number: Telephone Information: Call Notes: patient says she is calling because she [place] [facility] [place] and is having a hard timewith her son passing and is wondering if she can have DIAZEPAM sent in for half a pill or a milder one. 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
--- OUTSIDE RECORDS SUMMARY | 2025-05-30 09:04 | XMS_ITS | Clinical Summary ---
Author Organization [facility] Manuel díaz Marissa Address [address] [place] [address] Phone Care Team Providers Care Service Vehicle Operator Name Role Phone Geni Schulte Primary Care Provider Allergies Active Allergy Reactions Criticality Noted Date Comments Levothyroxine Muscle Pain Low 10/06/2023 Medications meloxicam (Mobic) 15 mg tabletIndications:P rimary osteoarthritis of both hands Take 1 Tablet (15 mg) by mouth daily. 30 Tablet 11 4 Active amLODIPine (NORVASC) 5 mg tabletIndications:O ther secondary hypertension Take 1 Tablet (5 mg) by mouth daily. 90 Tablet 3 4 Active lisinopriL (PRINIVIL) 20 mg tabletIndications:O ther secondary hypertension Take 1 Tablet (20 mg) by mouth daily. 100 Tablet 3 4 Active busPIRone (BUSPAR) 5 mg tabletIndications:A nxiety state Take 1 Tablet (5 mg) by mouth 3 times daily as needed for Anxiety. 90 Tablet 2 4 Active thyroid, pork, (YIELD LOSS INSPECTOR Thyroid) 30 mg tabletIndications:A utoimmune hypothyroidism Take 1 Tablet (30 mg) by mouth daily. 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 30 Tablet 3 5 Active Active Problems Problem Noted Date Diagnosed Date Autoimmune hypothyroidism 09/26/2023 Other secondary hypertension 09/25/2023 Situational mixed anxiety and depressive disorde r 05/28/2022 Primary osteoarthritis of both hands 05/28/2022 History of fracture of lower leg 07/15/2021 Restless legs syndrome (RLS) 07/15/2021 Mixed hyperlipidemia 07/15/2021 Resolved Problems Problem Noted Date Diagnosed Date Resolved Date Generalized anxiety disorder 07/15/2021 05/28/2022 Encounters Date Type Department Care Team Description 05/03/2025 Patient Outreach [facility] [address] [place] [address] Geni Schulte, DO Primary Care Outreach (Unable to contact patient by phone, no [facility]; Outreach not successful phone number invalid.) 04/26/2025 External Device Data [facility] ABSTRACTION Provider, Abstract 04/06/2025 External Device Data [facility] ABSTRACTION Provider, Abstract 04/05/2025 External Device Data [facility] ABSTRACTION Provider, Abstract 03/21/2025 Telephone [facility] [address] [place] [address] Geni Schulte, DO Medication Review 03/21/2025 Refill [facility] [address] [place] [address] Geni Schulte, DO Severe episode of recurrent major depressive disorder, without psychotic features ([facility]) 03/08/2025 External Device Data [facility] ABSTRACTION Provider, Abstract from Last 3 Months Family History Relation Name Status Comments Brother Alive 2 brothers Father Alive parkinsons Mother of anueris m Social History Tobacco Use Types Packs/Day Years Used Date Smoking Tobacco: Some Days Cigarettes Passive Smoke Exposure: Current Smokeless Tobacco: Never Tobacco Cessation:Ready to Q uit: No; Counseling Given: Yes Alcohol Use Standard Drinks/Week Comments Not Currently [...] on file Sexual Orientation Not on file Last Filed Vital Signs Vital Sign Reading Time Taken Comments Blood Pressure 120/58 07/26/2024 2:21 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 Pulse 84 07/26/2024 2:21 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 Temperature 37 C (98.6 F) 07/26/2024 2:21 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 Respiratory Rate 18 07/26/2024 2:21 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 Oxygen Saturation 96% 07/26/2024 2:21 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 Inhaled Oxygen Concentration - - Weight 48.4 kg (106 lb 9.6 oz) 07/26/2024 2:21 P M 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 Height 162.6 cm (5' 4 ) 07/26/2024 2:21 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 Body Mass Index 18.3 07/26/2024 2:21 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 Plan of Treatment Health Maintenance Due Date Last Done Comments FIT/ DNA Q 3 YEARS (AUTO ORDER) 1985 FIT/FOBT Q 1 YEAR (AUTO ORDER) 1985 FLEX SIG/CT COLONOGRAPHY Q 5 YEARS (AUTO ORDER) 1985 DTAP/TDAP/TD VACCINES (1 - Tdap) 1986 HEPATITIS B VACCINES (1 of 3 - 19+ 3-dose series) 1986 COLORECTAL CANCER SCREENING (AUTO ORDER) 2012 COLORECTAL SCREENING 2012 Colorectal Cancer Screening (AUTO ORDER) 2012 Colorectal Cancer Screening 2012 FIT-DNA Q 3 years 2012 FIT/FOBT Q 1 year 2012 Flex Sig/CT Colonography Q 5 years 2012 ZOSTER VACCINE (1 of 2) 2017 BREAST CANCER SCREENING 05/09/2023 05/09/2022 Medicare Advantage (NE) Preventative Visit/Annual Wellness Visit 09/22/2024 07/26/2024, 05/28/2022 INFLUENZA VACCINE (#1) 2025 4, 09/25/2023, 06/28/2021, Additional history exists COVID-19 Vaccine (2024-2 6 season) 2025 04/24/2021, 03/27/2021 Procedures Procedure Name Priority Date/Time Associated Diagnosis Comments MAMMO SCREEN BILAT W OR WO CAD Routine 05/09/2022 Visit for screening mammogram from Last 3 Months or Most Recently Relevant to Health Maintenance Results * MAMMO SCREEN BILAT W OR WO CAD (05/09/2022) Anatomical Region Laterality Modality Breast Bilateral Mammography us Geni Schulte DO MAMMO ORDERABLES Final Resu lt from Last 3 Months or Most Recently Relevant to Health Maintenance Insurance [address] [place] [id number] [facility] [place]: [place] [address] Care Teams Service Vehicle Operator Relationship Specialty Start Date End Date Geni Schulte DO [address] [place] [id number] PCP - General Family Practice 04/12/21
[2025-05-30 09:06] VITALS: BP 158/92; PULSE 64; TEMP 36.7; O2SAT 96; BMI 18.3
--- NOTE | 2025-05-30 09:09 | ECG_ITS ---
[facility] Pat Name: Zaria Sheehan Department: Room: Gender: Female Bevel Face [employer]isher: : 1965 Requested By: Ruy Maldonado Order Number: [id number] Reading MD: BJORN SOUSA Measurements Intervals [place] Rate: 63 P: 62 [place]: 145 QRS: 49 QRSD: 80 T: 68 QT: 407 QTc: 417 Interpretive Statements SINUS RHYTHM Compared to ECG 11/23/2024 12:57:58 No significant changes Electronically Signed On 05-30-2025 10:44:11 CDT by BJORN SOUSA [id number]
[2025-05-30 10:35] LABS: Hematocrit 42.2 % (36-47); Hemoglobin 14.10 g/dL (11.27-16.99); Mean Corpuscular HGB Conc 33.4 g/dL (30-55); Mean Corpuscular Hemoglobin 32.1 pg (27-33); Mean Corpuscular Volume 96.1 fl (85-98); Nucleated Red Blood Cells % 0 %; Platelet Count 254 10^3/cmm (157-399); Red Blood Count 4.39 10^6/uL (3.85-5.65); White Blood Count 3.79 10^3/uL (3.29-11.43)
[2025-05-30 10:55] LABS: Alanine Aminotransferase 94 U/L (0-33); Albumin Level 3.8 g/dL (3.5-5.2); Alkaline Phosphatase 121 U/L (35-105); Anion Gap 13.6 (5-19); Aspartate Amino Transferase 109 U/L (0-32); Blood Urea Nitrogen 9 mg/dL (6-20); Calcium 8.7 mg/dL (8.5-10.5); Carbon Dioxide 25 mmol/L (22-29); Chloride 104 mmol/L (98-107); Creatinine Clr Calc Pharmacy 94.4657; Globulin 3.3 g/dL (1.3-4.6); Glucose 83 mg/dL (65-115); Osmolality Calculated 284 mOsm/kg (285-295); Potassium 4.6 mmol/L (3.5-5.1); Sodium 138 mmol/L (136-145); Total Protein 7.1 g/dL (6.6-8.7)
== END 2025-05-30 11:02 | disposition left against medical advice (07) ==
PROVIDERS: Family Medicine; Emergency Provider Physician Assistant; PCP Registered Nurse
DX: Z01.89 Encounter for other specified special examinations (principal); Z53.21 Procedure and treatment not carried out due to patient leaving prior to being seen by health care provider
CPT/HCPCS: 36415; 80053; 85025; 93005